=== PATIENT | male | born 1935 | race Caucasian/White ===

== ENCOUNTER 2016-06-28 10:16 | Emergency (ER) | payer MEDICARE ==
--- NOTE | 2016-06-28 10:28 | Emergency Department Record ---
History of Present Illness - General Chief complaint: Swelling of legs Stated complaint: LEFT LEG SWOLLEN Time Seen by Provider: 06/28/16 10:27 Source: Patient Mode of Arrival: Ambulatory Limitations: No limitations - History of Present Illness Initial comments: The patient is here due to L leg swelling for about 2 weeks. He denies any pain or discomfort. The patient also denies any CP, SOB, or MANSOOR. There is a past hx of DVT and the patient is on Coumadin for it. He was having an issue with his Coumadin and had it lowered about a month ago and his INR became low. He also has a Ashanti filter in place. The patient denies any black or bloody stools or any weakness or lightheadedness. MD Complaint: Extremity swelling Onset/Timin -: Week(s) Location: Left, Lower Leg History of Same: Yes Consistency: Constant Improves with: Nothing Worsens with: Nothing Associated Symptoms: Denies other symptoms - Related Data Home Medications Medication Instructions Recorded Confirmed Last Taken Omeprazole 20 mg PO DAILY 06/28/16 06/28/16 Unknown Rivastigmine 1 each TD DAILY 06/28/16 06/28/16 Unknown Warfarin Sodium [Coumadin] 2.5 mg PO DAILY 06/28/16 06/28/16 Unknown Previous Rx's Medication Instructions Recorded Enoxaparin Sodium [Lovenox] 100 mg SQ DAILY #5 ml 06/28/16 Allergies Allergy/AdvReac Type Severity Reaction Status Date / Time Penicillins Allergy HIVES Verified 06/28/16 10:25 Travel Screening - Travel/Exposure Within Last 30 Days Have you traveled within the last 30 days?: No Review of Systems Constitutional: Denies: Chills, Fever Eyes: Denies: Eye discharge ENT: Denies: Congestion Respiratory: Denies: Cough, Dyspnea Past Medical History - SOCIAL HISTORY Smoking Status: Former smoker Alcohol Use: None Drug Use: None - RESPIRATORY Hx Respiratory Disorders: No - CARDIOVASCULAR Hx Cardio Disorders: Yes Hx Deep Vein Thrombosis: Yes - NEURO Hx Neuro Disorders: Yes Hx TIA: Yes - GI Hx GI Disorders: Yes Hx Reflux: Yes - Hx Genitourinary Disorders: No - ENDOCRINE Hx Endocrine Disorders: No - MUSCULOSKELETAL Hx Musculoskeletal Disorders: No - PSYCH Hx Psych Problems: No - HEMATOLOGY/ONCOLOGY Hx Hematology/Oncology Disorders: No Family Medical History Any Significant Family History?: No Physical Exam - General General Appearance: Alert, Cooperative, No acute distress - Head Head exam: Atraumatic, Normocephalic, Normal inspection - Eye Eye exam: Normal appearance, PERRL - Neck Neck exam: Normal inspection, Full ROM. negative: Tenderness - Respiratory Respiratory exam: Normal lung sounds bilaterally. negative: Respiratory distress - Cardiovascular Cardiovascular Exam: Regular rate, Normal rhythm, Systolic murmur (2/6 RADHA LLSB. ) - GI/Abdominal GI/Abdominal exam: Soft, Normal bowel sounds. negative: Tenderness - Rectal Rectal exam: Heme (-) stool - Extremities Extremities exam: Normal capillary refill, Pedal edema (2+ to the L lower leg to the knee.). negative: Normal inspection, Calf tenderness, Joint swelling, Tenderness - Neurological Neurological exam: Alert. negative: Motor sensory deficit Course Vital Signs 06/28/16 10:19 Temperature 97.8 F Pulse Rate 90 Respiratory 20 Rate Blood Pressure 120/64 Pulse Ox 96 - Reevaluation(s) Reevaluation #1: The patient is resting comfortably. He denies any CP, SOB, or MANSOOR. 06/28/16 12:38 Reevaluation #2: The patient is doing very well at this time. He denies any pain or discomfort and is very stable at this time. I did discuss the US results with him and his daughter. I then did discuss the case with Dr. Perry and he believes since the patient has a filter in place and is already on Coumadin and is almost therapeutic he can go home on Lovenox. He would like the INR to be rechecked on Saturday and will see him in the office next week and will recheck the anemia also at that time. 06/28/16 13:56 Medical Decision Making - Data Complexity MDM Data: Labs Ordered and/or Reviewed, X-Ray Ordered and/or Reviewed - Lab Data Result diagrams: 06/28/16 10:49 06/28/16 10:49 - Radiology Data Radiology results: Report reviewed (Bilateral thigh clots on Doppler.) Disposition Disposition: Discharge Clinical Impression: DVT (deep venous thrombosis) Qualifiers: DVT location: lower extremity Affected thrombotic vein of extremity: unspecified vein of extremity Laterality: bilateral Chronicity: unspecified Qualified Code(s): I82.403 - Acute embolism and thrombosis of unspecified deep veins of lower extremity, bilateral Disposition: Home, Self-Care Condition: (1) Good Instructions: Deep Venous Thrombosis (ED) Additional Instructions: Please increase your Coumadin to 2.5 mg daily 7 days a week. Take the Lovenox as directed. Please have your lab work rechecked on Saturday. Please see your PCP next week as planned. Dr. Perry Prescriptions: Enoxaparin Sodium [Lovenox] 100 mg SQ DAILY #5 ml Forms: Patient Portal Access Time of Disposition: 14:02
[2016-06-28 11:08] LABS: ANION GAP 10.1 (7-16); BLOOD UREA NITROGEN 22 mg/dL (9-20); CARBON DIOXIDE 21.9 mmol/L (22-30); CREATININE 1.1 mg/dL (0.66-1.25); EST GLOMERULAR FILTRATION RATE > 60 ml/min; GLUCOSE,RANDOM 122 mg/dL (70-110)
[2016-06-28 11:10] LABS: INR 1.7; PARTIAL THROMBOPLASTIN TIME 34.7 SECONDS (24.5-39.1); PROTHROMBIN TIME (PATIENT) 19.2 SECONDS (9.5-12.1)
[2016-06-28 11:33] LABS: HEMATOCRIT 32.8 % (42.0-52.0); HEMOGLOBIN 10.5 gm/dl (14.0-18.0); MEAN CELL VOLUME 91.1 fl (81-97); PLATELET COUNT 346 K/uL (130-400); RED CELL DISTRIBUTION WIDTH 14.9 % (11.5-14.5); WHITE BLOOD COUNT W/O DIFF 7.6 K/uL (4.2-12.2)
[2016-06-28 11:37] LABS: MEAN CORPUSCULAR HEMOGLOBIN 29.1 pg (27-33)
[2016-06-28 11:42] LABS: PLATELET ESTIMATE NORMAL (NORMAL)
--- NOTE | 2016-07-03 10:45 | US VENOUS DOPPLER REPORT ---
EXAM: BILATERAL LOWER EXTREMITY VENOUS DOPPLER ULTRASOUND HISTORY: LEFT LOWER LEG SWELLING FOR A WEEK, HISTORY OF DVT YEARS AGO. TECHNIQUE: Venous Doppler ultrasound of the lower extremities was performed bilaterally. Color flow and spectral analysis was utilized, and flow augmentation and compression maneuvers were also utilized. Comparison: No prior venous Doppler ultrasound with which to compare. FINDINGS: On the left side, note is made of apparent thrombus to a considerable degree in the proximal left superficial femoral vein with some extension into the common femoral vein. This demonstrated a lack of compressibility and also lack of flow in the area of thrombus. The left greater saphenous vein and deep femoral vein did appear patent as visualized, however, the majority of the left superficial femoral vein does appear occluded with thrombus with probably a very small amount of flow in portions of the left mid superficial femoral vein. No images of the more distal aspect of the left lower extremity are provided. On the right, some thrombus is also seen in the common femoral vein and also in the mid to proximal aspect of the right superficial femoral vein with a lack of flow in this region. Some flow is seen in the more distal aspect of the right superficial femoral vein. No images of the more distal aspect of the right lower extremity were obtained. IMPRESSION: EVIDENCE OF DVT IN BOTH SUPERFICIAL FEMORAL VEINS EXTENDING INTO BOTH COMMON FEMORAL VEINS. JOB NUMBER: [id number] [facility]
== END 2016-06-28 14:11 | disposition home or self-care (01) ==
LOC: ER 10:16
DX: I82.412 Acute embolism and thrombosis of left femoral vein (principal); Z86.718 Personal history of other venous thrombosis and embolism; Z79.01 Long term (current) use of anticoagulants; Z87.891 Personal history of nicotine dependence
CPT/HCPCS: 80048; 85027; 85610; 85730; 93970; 99283; 99284

== ENCOUNTER 2016-07-27 10:15 | Emergency (ER) | payer MEDICARE ==
--- NOTE | 2016-07-27 10:40 | Emergency Department Record ---
History of Present Illness - General Chief complaint: Extremity Problem Stated complaint: POSSIBLE BLOOD CLOT Time Seen by Provider: 07/27/16 10:39 Source: Patient Mode of Arrival: Ambulatory Limitations: No limitations - History of Present Illness Initial comments: The patient is here with his daughter due to the L leg being more swollen than normal. He has a long hx of DVT's and is on Coumadin and does have a sowmya filter in place. He denies any CP, SOB, or MANSOOR. He was just here about a month ago and diagnosed with DVT's in both thighs. MD Complaint: Extremity swelling Onset/Timin -: Days(s) Location: Left, Lower Leg History of Same: Yes Severity scale (1-10): 1 Quality: Aching - Related Data Home Medications Medication Instructions Recorded Confirmed Last Taken Omeprazole 20 mg PO DAILY 06/28/16 07/27/16 1 Day Ago Rivastigmine 4.6 each TD DAILY 06/28/16 07/27/16 1 Day Ago Warfarin Sodium [Coumadin] 5 mg PO DAILY 06/28/16 07/27/16 1 Day Ago Ascorbic Acid [Vitamin C] 500 mg PO BID 07/27/16 07/27/16 1 Day Ago Ferrous Sulfate 325 mg PO BID 07/27/16 07/27/16 1 Day Ago Allergies Allergy/AdvReac Type Severity Reaction Status Date / Time Penicillins Allergy HIVES Verified 07/27/16 10:32 Travel Screening - Travel/Exposure Within Last 30 Days Have you traveled within the last 30 days?: No - Travel/Exposure Within Last Year Have you traveled outside the [place] in the last year?: No - Additonal Travel Details Have you been exposed to anyone with a communicable illness?: No - Travel Symptoms Symptom Screening: None Review of Systems Constitutional: Denies: Chills, Fever Eyes: Denies: Eye discharge ENT: Denies: Congestion Respiratory: Denies: Cough, Dyspnea Cardiovascular: Denies: Arrhythmia, Chest pain Past Medical History - SOCIAL HISTORY Smoking Status: Former smoker Alcohol Use: None Drug Use: None - RESPIRATORY Hx Pulmonary Embolism: Yes - CARDIOVASCULAR Hx Cardio Disorders: Yes Hx Deep Vein Thrombosis: Yes - NEURO Hx Neuro Disorders: Yes Hx TIA: Yes - GI Hx GI Disorders: Yes Hx Reflux: Yes - Hx Genitourinary Disorders: No - ENDOCRINE Hx Endocrine Disorders: No - MUSCULOSKELETAL Hx Musculoskeletal Disorders: No - PSYCH Hx Psych Problems: No - HEMATOLOGY/ONCOLOGY Hx Hematology/Oncology Disorders: No Family Medical History Any Significant Family History?: Yes Physical Exam - General General Appearance: Alert, Cooperative, No acute distress - Head Head exam: Atraumatic, Normocephalic, Normal inspection - Eye Eye exam: Normal appearance, PERRL - Neck Neck exam: Normal inspection, Full ROM. negative: Tenderness - Respiratory Respiratory exam: Normal lung sounds bilaterally. negative: Respiratory distress - Cardiovascular Cardiovascular Exam: Regular rate, Normal rhythm, Systolic murmur (2/6 RADHA LLSB. ) - GI/Abdominal GI/Abdominal exam: Soft, Normal bowel sounds. negative: Tenderness - Extremities Extremities exam: Pedal edema (L leg 2+ compared to 1+ on the R.), Tenderness. negative: Normal inspection (The L leg is more swollen than normal.) - Back Back exam: Reports: Normal inspection - Neurological Neurological exam: Alert Course Vital Signs 07/27/16 10:22 Temperature 97.8 F Pulse Rate 81 Respiratory 20 Rate Blood Pressure 111/57 Pulse Ox 97 - Reevaluation(s) Reevaluation #1: The patient is resting comfortably and denies any problems or pain. He is still waiting on his US. 07/27/16 12:00 Reevaluation #2: The patient is doing well at this time. I did discuss the test results with the patient and daughter. I also did discuss the US and lab results with Dr. Perry. Due to the US appearing improved from last month we will have the patient start using KANCHAN hose and will monitor his INR level closely. 07/27/16 15:44 Medical Decision Making - Data Complexity MDM Data: Labs Ordered and/or Reviewed, X-Ray Ordered and/or Reviewed - Lab Data Result diagrams: 07/27/16 11:05 07/27/16 11:05 - Radiology Data Radiology results: Report reviewed (US: Doppler L leg: DVT's to the bilateral legs, improved from last month.) Disposition Disposition: Discharge Clinical Impression: DVT (deep venous thrombosis) Qualifiers: DVT location: lower extremity Affected thrombotic vein of extremity: unspecified vein of extremity Laterality: bilateral Chronicity: unspecified Qualified Code(s): I82.403 - Acute embolism and thrombosis of unspecified deep veins of lower extremity, bilateral Disposition: Home, Self-Care Condition: (2) Stable Instructions: Deep Venous Thrombosis (ED), Leg Edema (ED) Additional Instructions: Please do not take your next dose of Coumadin and start back on your normal dosing tomorrow. Please have your INR rechecked on Saturday. Use the Kanchan hose as directed. Return to the ER for any problems. Forms: Patient Portal Access Time of Disposition: 15:40
[2016-07-27 11:12] LABS: BASO % 0.3 % (0-6); EOS % 2.9 % (0-6); GRAN % 72.9 % (47-80); HEMATOCRIT 33.7 % (42.0-52.0); HEMOGLOBIN 10.3 gm/dl (14.0-18.0); LYMPH % 13.7 % (16-45); MEAN CELL VOLUME 91.3 fl (81-97); MEAN CORPUSCULAR HEMOGLOBIN 27.9 pg (27-33); MEAN CORPUSCULAR HGB CONC 30.6 g/dl (32-36); MEAN PLATELET VOLUME 9.4 fl (7.4-10.4); MONO % 10.2 % (0-9); PLATELET COUNT 329 K/uL (130-400); RED BLOOD COUNT 3.69 M/uL (4.40-5.70); RED CELL DISTRIBUTION WIDTH 15.2 % (11.5-14.5); WHITE BLOOD COUNT W/O DIFF 8.8 K/uL (4.2-12.2)
[2016-07-27 11:33] LABS: INR 4.19; PARTIAL THROMBOPLASTIN TIME 49.3 SECONDS (24.5-39.1); PROTHROMBIN TIME (PATIENT) 47.3 SECONDS (9.5-12.1)
[2016-07-27 11:37] LABS: BLOOD UREA NITROGEN 24 mg/dL (9-20); EST GLOMERULAR FILTRATION RATE > 60 ml/min; GLUCOSE,RANDOM 109 mg/dL (70-110)
--- NOTE | 2016-07-31 13:25 | US VENOUS DOPPLER REPORT ---
EXAM: DUPLEX VENOUS DOPPLER ULTRASOUND OF THE LEFT LOWER EXTREMITY HISTORY: LEFT LOWER EXTREMITY SWELLING. TECHNIQUE: Duplex ultrasound venography of the left lower extremity was obtained. Comparison: 06/28/16. FINDINGS: On the left side the common femoral vein is poorly compressible. There is flow identified in the common femoral vein. The superficial femoral vein incompletely compresses. There is flow identified within the superficial femoral vein. There is peripheral thrombus present. Overall the thrombus appears slightly less than on the patient's previous examination. A thrombus is seen throughout the course of the superficial femoral vein. The popliteal vein also appears poorly compressible presumably due to some thrombus . The calf veins are poorly seen, but are grossly unremarkable. On the right side limited imaging is performed. There is incomplete compressibility of the common femoral vein suggesting the presence of some thrombus. This finding appears similar to the previous study. IMPRESSION: EVIDENCE OF DEEP VENOUS THROMBOSIS BILATERALLY, LEFT GREATER THAN RIGHT. FINDINGS VISUALLY APPEAR SLIGHTLY IMPROVED FROM THE PREVIOUS STUDY. IT IS UNCERTAIN HOW MUCH OF THIS IS CHRONIC VERSUS ACUTE THROMBUS. JOB NUMBER: [id number] [facility]
== END 2016-07-27 15:44 | disposition home or self-care (01) ==
LOC: ER 10:15
DX: I82.403 Acute embolism and thrombosis of unspecified deep veins of lower extremity, bilateral (principal); Z79.01 Long term (current) use of anticoagulants
CPT/HCPCS: 80048; 85025; 85610; 85730; 99283; 99284

== ENCOUNTER 2016-10-05 07:09 | Emergency (ER) | payer MEDICARE ==
--- NOTE | 2016-10-05 07:22 | Emergency Department Record ---
History of Present Illness - General Chief Complaint: Fall Injury Stated Complaint: FALL Source: Patient Mode of Arrival: Ambulatory Limitations: No limitations - History of Present Illness Initial Comments: 80 yo male presents to ED with a CC of fall and left hip pain. Patient denies injury to the head, and reports that he was able to get back up on his own and walk to the front desk supervisor to ask for help. Patient denies neck pain or injury, Patient denies numbness, tingling, or weakness to the extremities. 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 Fall Witnessed: No Place Fall Occurred: Home Loss of Consciousness: None Prolonged Down Time?: No Symptoms Prior to Fall: None Location - Extremities: Left: Lower Leg Severity: Moderate Quality: Aching Associated Symptoms: Denies - Yaw Coma Scale Eye Response: (4) Open spontaneously Motor Response: (6) Obeys commands Verbal Response: (5) Oriented Yaw Total: 15 - Related Data Home Medications Medication Instructions Recorded Confirmed Last Taken Omeprazole 20 mg PO DAILY 06/28/16 10/05/16 10/04/16 Rivastigmine 4.6 each TD DAILY 06/28/16 10/05/16 10/04/16 Warfarin Sodium [Coumadin] 2.5 mg PO DAILY 06/28/16 10/05/16 10/04/16 Ascorbic Acid [Vitamin C] 500 mg PO BID 07/27/16 10/05/16 10/04/16 Ferrous Sulfate 325 mg PO BID 07/27/16 10/05/16 10/04/16 Acetaminophen [Tylenol 325Mg] 325 mg PO Q6H PRN 10/05/16 10/05/16 10/05/16 Furosemide [Lasix] 20 mg PO DAILY 10/05/16 10/05/16 10/04/16 Polyethylene Glycol 3350 [Miralax] 119 gm PO DAILY 10/05/16 10/05/16 10/04/16 Potassium Chloride [Klor-Con] 10 meq PO DAILY 10/05/16 10/05/16 10/04/16 Quetiapine Fumarate [Seroquel] 25 mg PO QHS 10/05/16 10/05/16 10/04/16 Allergies Allergy/AdvReac Type Severity Reaction Status Date / Time Penicillins Allergy HIVES Verified 10/05/16 07:16 Review of Systems Constitutional: Denies: Chills, Fever, Malaise, Night sweats Eyes: Denies: Eye discharge, Eye pain ENT: Denies: Congestion, Ear pain, Epistaxis Respiratory: Denies: Cough, Dyspnea Cardiovascular: Denies: Chest pain, Dyspnea on exertion Endocrine: Denies: Fatigue, Heat or cold intolerance Gastrointestinal: Denies: Abdominal pain, Nausea, Vomiting Genitourinary: Denies: Incontinence, Retention Musculoskeletal: Denies: Arthralgia, Back pain, Gout, Joint swelling Skin: Denies: Bruising, Change in color Neurological: Denies: Abnormal gait, Confusion, Headache, Seizure Psychiatric: Denies: Anxiety Hematological/Lymphatic: Denies: Anemia, Blood Clots Past Medical History - SOCIAL HISTORY Smoking Status: Former smoker Drug Use: None - RESPIRATORY Hx Pulmonary Embolism: Yes - CARDIOVASCULAR Hx Cardio Disorders: Yes Hx Deep Vein Thrombosis: Yes - NEURO Hx Neuro Disorders: Yes Hx TIA: Yes - GI Hx GI Disorders: Yes Hx Reflux: Yes - Hx Genitourinary Disorders: No - ENDOCRINE Hx Endocrine Disorders: No - MUSCULOSKELETAL Hx Musculoskeletal Disorders: No - PSYCH Hx Psych Problems: No - HEMATOLOGY/ONCOLOGY Hx Hematology/Oncology Disorders: No Physical Exam - General General Appearance: Alert, Oriented x3, Cooperative, No acute distress Limitations: No limitations - Head Head exam: Atraumatic, Normocephalic, Normal inspection Head exam detail: negative: Abrasion, Contusion, Barnett's sign, General tenderness, Hematoma, Laceration - Eye Eye exam: Normal appearance. negative: Conjunctival injection, Periorbital swelling, Periorbital tenderness, Scleral icterus - ENT Ear exam: negative: Auricular hematoma, Auricular trauma Nasal Exam: negative: Active bleeding, Discharge, Dried blood, Foreign body Mouth exam: negative: Drooling, Laceration, Muffled voice, Tongue elevation - Neck Neck exam: Normal inspection. negative: Meningismus, Tenderness - Respiratory Respiratory exam: Normal lung sounds bilaterally. negative: Rales, Respiratory distress, Rhonchi, Stridor - Cardiovascular Cardiovascular Exam: Regular rate, Normal rhythm, Normal heart sounds - GI/Abdominal GI/Abdominal exam: Soft. negative: Rebound, Rigid, Tenderness - Rectal Rectal exam: Deferred - exam: Deferred - Extremities Extremities exam: Pedal edema (2+ edema bilaterally), Tenderness (TTP left hip proximally). negative: Calf tenderness - Back Back exam: Denies: CVA tenderness (R), CVA tenderness (L) - Neurological Neurological exam: Alert, Oriented X3. negative: Motor sensory deficit - Psychiatric Psychiatric exam: Normal affect, Normal mood - Skin Skin exam: Normal color. negative: Abrasion Type of lesion: negative: abrasion Course Vital Signs 10/05/16 07:11 Temperature 97.8 F Pulse Rate [ 82 Pulse Ox Probe] Respiratory 16 Rate Blood Pressure 141/84 [Left Arm] Pulse Ox 97 - Reevaluation(s) Reevaluation #1: 10/05/16 08:06 Labs reviewed, Hgb at baseline (10.9), INR 1.30, labs are otherwise grossly unremarkable for an acute process. Reevaluation #2: 10/05/16 08:49 Patient is back from radiology, initially refused analgesia, however was willing to take 1/2 [place] tablet, now sleeping comfortably. Awaiting radiologist interpretation. Reevaluation #3: 10/05/16 08:56 CT Brain: Atrophy, nothing acute. Left Hip: No acute fracture. Reevaluation #4: 10/05/16 09:08 Patient up with walker, able to weight bear well without difficulty. Patient and family were updated on all results, and the patient appears stable for discharge at this time. Medical Decision Making - Lab Data Result diagrams: 10/05/16 07:33 10/05/16 07:33 Disposition Disposition: Discharge Clinical Impression: Contusion of hip Qualifiers: Encounter type: initial encounter Laterality: left Qualified Code(s): S70.02XA - Contusion of left hip, initial encounter Disposition: Home, Self-Care Condition: (2) Stable Instructions: Fall Prevention for Older Adults (ED) Additional Instructions: Return to ED if your symptoms worsen or if you have any concerns. Follow-up with your family doctor in 1-3 days as directed. Forms: Patient Portal Access Time of Disposition: 09:10
[2016-10-05 07:41] LABS: BASO % 0.6 % (0-6); GRAN % 69.2 % (47-80); HEMATOCRIT 36.3 % (42.0-52.0); HEMOGLOBIN 10.9 gm/dl (14.0-18.0); LYMPH % 15.7 % (16-45); MEAN CELL VOLUME 91.4 fl (81-97); MEAN PLATELET VOLUME 9.5 fl (7.4-10.4); MONO % 11.5 % (0-9); PLATELET COUNT 281 K/uL (130-400); RED BLOOD COUNT 3.97 M/uL (4.40-5.70); RED CELL DISTRIBUTION WIDTH 17.3 % (11.5-14.5); WHITE BLOOD COUNT W/O DIFF 8.9 K/uL (4.2-12.2)
[2016-10-05 07:42] LABS: MEAN CORPUSCULAR HEMOGLOBIN 27.4 pg (27-33)
[2016-10-05 07:53] LABS: INR 1.3; PROTHROMBIN TIME (PATIENT) 14.7 SECONDS (9.5-12.1)
[2016-10-05 08:00] LABS: ALB/GLOB RATIO 1.1 (1.1-1.8); ALBUMIN 3.8 gm/dL (3.5-5.0); ALKALINE PHOSPHATASE 103 U/L (38-126); ALT/SGPT 37 U/L (21-72); ANION GAP 7.5 (7-16); AST/SGOT 32 U/L (17-59); BILIRUBIN,TOTAL 0.36 mg/dL (0.2-1.3); BLOOD UREA NITROGEN 24 mg/dL (9-20); CARBON DIOXIDE 26.5 mmol/L (22-30); EST GLOMERULAR FILTRATION RATE > 60 ml/min; GLUCOSE,RANDOM 99 mg/dL (70-110); TOTAL PROTEIN 7.3 gm/dL (6.3-8.2)
[2016-10-05] MEDS ORDERED: HYDROCODONE/APAP 7.5/325MG TABLET PO ONE (08:05)
== END 2016-10-05 09:32 | disposition home or self-care (01) ==
LOC: ER 07:09
DX: S70.02XA Contusion of left hip, initial encounter (principal); W01.0XXA Fall on same level from slipping, tripping and stumbling without subsequent striking against object, initial encounter; Y92.129 Unspecified place in nursing home as the place of occurrence of the external cause; Z86.73 Personal history of transient ischemic attack (TIA), and cerebral infarction without residual deficits; Z79.01 Long term (current) use of anticoagulants
CPT/HCPCS: 70450; 80053; 85025; 85610; 99283; 99284

== ENCOUNTER 2016-10-28 14:36 | Emergency (ER) | payer MEDICARE ==
[2016-10-28] MEDS ORDERED: HYDROCODONE/APAP 5/325MG TABLET PO ONE ×2 (17:24→17:27)
--- NOTE | 2016-10-28 17:30 | Emergency Department Record ---
History of Present Illness - General Chief complaint: Pain Stated complaint: HIP PAIN Time Seen by Provider: 10/28/16 15:42 Source: Patient, Family Mode of Arrival: Wheelchair Limitations: No limitations - History of Present Illness Initial comments: pt fell onto his l hip today and it hurts to walk on it. pt has fallen 3 times in the last month MD Complaint: Extremity pain Onset/Timin -: Days(s) Location: Left, Other Severity scale (1-10): 6 Quality: Aching Consistency: Constant Improves with: Nothing Worsens with: Walking, Weight bearing Associated Symptoms: Denies other symptoms - Related Data Home Medications Medication Instructions Recorded Confirmed Last Taken Omeprazole 20 mg PO DAILY 06/28/16 10/28/16 10/04/16 Rivastigmine 4.6 each TD DAILY 06/28/16 10/28/16 10/04/16 Warfarin Sodium [Coumadin] 2.5 mg PO DAILY 06/28/16 10/28/16 10/04/16 Ascorbic Acid [Vitamin C] 500 mg PO BID 07/27/16 10/28/16 10/04/16 Ferrous Sulfate 325 mg PO BID 07/27/16 10/28/16 10/04/16 Acetaminophen [Tylenol 325Mg] 325 mg PO Q6H PRN 10/05/16 10/28/16 10/05/16 Furosemide [Lasix] 20 mg PO DAILY 10/05/16 10/28/16 10/04/16 Polyethylene Glycol 3350 [Miralax] 119 gm PO DAILY 10/05/16 10/28/16 10/04/16 Potassium Chloride [Klor-Con] 10 meq PO DAILY 10/05/16 10/28/16 10/04/16 Quetiapine Fumarate [Seroquel] 25 mg PO QHS 10/05/16 10/28/16 10/04/16 Hydrocodone/Acetaminophen [[place] 1 tab PO Q8H PRN 10/28/16 10/28/16 Unknown 5mg/325mg] Previous Rx's Medication Instructions Recorded Hydrocodone/Acetaminophen [[place] 0.5 tab PO Q6H PRN #10 tab 10/28/16 5mg/325mg] Allergies Allergy/AdvReac Type Severity Reaction Status Date / Time Penicillins Allergy HIVES Verified 10/05/16 07:16 Travel Screening - Travel/Exposure Within Last 30 Days Have you traveled within the last 30 days?: No Review of Systems Reviewed: No additional complaints except as noted below Constitutional: Reports: As per HPI. Denies: Chills, Fever, Malaise, Night sweats, Weakness, Weight change Eyes: Reports: As per HPI. Denies: Eye discharge, Eye pain, Photophobia, Vision change ENT: Reports: As per HPI. Denies: Congestion, Dental pain, Ear pain, Epistaxis , Hearing loss, Throat pain Respiratory: Reports: As per HPI. Denies: Cough, Dyspnea, Hemoptysis, Stridor, Wheezes Cardiovascular: Reports: As per HPI. Denies: Arrhythmia, Chest pain, Dyspnea on exertion, Edema, Murmurs, Orthopnea, Palpitations, Paroxysmal nocturnal dyspnea, Rheumatic Fever, Syncope Endocrine: Reports: As per HPI. Denies: Fatigue, Heat or cold intolerance, Polydipsia, Polyuria Gastrointestinal: Reports: As per HPI. Denies: Abdominal pain, Constipation, Diarrhea, Hematemesis, Hematochezia, Melena, Nausea, Vomiting Genitourinary: Reports: As per HPI. Denies: Dysuria, Frequency, Hematuria, Incontinence, Retention, Testicular pain, Testicular mass, Urgency Musculoskeletal: Reports: As per HPI. Denies: Arthralgia, Back pain, Gout, Joint swelling, Myalgia, Neck pain Skin: Reports: As per HPI. Denies: Bruising, Change in color, Change in hair/ nails, Lesions, Pruritus, Rash Neurological: Reports: As per HPI. Denies: Abnormal gait, Confusion, Headache, Numbness, Paresthesias, Seizure, Tingling, Tremors, Vertigo, Weakness Psychiatric: Reports: As per HPI. Denies: Anxiety, Auditory hallucinations, Depression, Homicidal thoughts, Suicidal thoughts, Visual hallucinations Hematological/Lymphatic: Reports: As per HPI. Denies: Anemia, Blood Clots, Easy bleeding, Easy bruising, Swollen glands Past Medical History - SOCIAL HISTORY Smoking Status: Former smoker - RESPIRATORY Hx Respiratory Disorders: Yes Hx Pulmonary Embolism: Yes - CARDIOVASCULAR Hx Cardio Disorders: Yes Hx Deep Vein Thrombosis: Yes - NEURO Hx Neuro Disorders: Yes Hx TIA: Yes - GI Hx GI Disorders: Yes Hx Reflux: Yes - Hx Genitourinary Disorders: No - ENDOCRINE Hx Endocrine Disorders: No - MUSCULOSKELETAL Hx Musculoskeletal Disorders: No - PSYCH Hx Psych Problems: No - HEMATOLOGY/ONCOLOGY Hx Hematology/Oncology Disorders: No Family Medical History Any Significant Family History?: No Physical Exam - General General Appearance: Alert, Oriented x3, Cooperative, Mild distress - Head Head exam: Normal inspection - Eye Eye exam: Normal appearance, PERRL, EOMI Pupils: Normal accommodation - ENT ENT exam: Normal exam, Mucous membranes moist, Normal external ear exam, Normal orophraynx Ear exam: Normal external inspection. negative: External canal tenderness Nasal Exam: Normal inspection. negative: Discharge, Sinus tenderness Mouth exam: Normal external inspection, Tongue normal Teeth exam: Normal inspection. negative: Dental caries Throat exam: Normal inspection. negative: Tonsillar erythema, Tonsillar exudate - Neck Neck exam: Normal inspection, Full ROM. negative: Tenderness - Respiratory Respiratory exam: Normal lung sounds bilaterally. negative: Respiratory distress - Cardiovascular Cardiovascular Exam: Regular rate, Normal rhythm, Systolic murmur - GI/Abdominal GI/Abdominal exam: Soft, Normal bowel sounds. negative: Tenderness - Rectal Rectal exam: Deferred - exam: Deferred - Extremities Extremities exam: Normal inspection, Normal capillary refill, Tenderness. negative: Full ROM Image of Full Body: 1 - tender - Back Back exam: Reports: Normal inspection, Full ROM. Denies: Muscle spasm, Rash noted, Tenderness - Neurological Neurological exam: Alert, Normal gait, Oriented X3, Reflexes normal - Psychiatric Psychiatric exam: Normal affect, Normal mood - Skin Skin exam: Dry, Intact, Normal color, Warm Course Vital Signs 10/28/16 15:20 Temperature 98.1 F Pulse Rate 79 Respiratory 18 Rate Blood Pressure 119/69 Pulse Ox 94 L Disposition Disposition: Discharge Clinical Impression: Hip pain Qualifiers: Laterality: left Qualified Code(s): M25.552 - Pain in left hip Disposition: Home, Self-Care Condition: (1) Good Instructions: Pain Management in the Elderly (ED), Osteoarthritis (ED), Hip Sprain (ED) Additional Instructions: follow up with family doctor. rest. return sooner if worse Prescriptions: Hydrocodone/Acetaminophen [[place] 5mg/325mg] 0.5 tab PO Q6H PRN #10 tab PRN Reason: Pain - General Forms: Patient Portal Access
== END 2016-10-28 17:30 | disposition home or self-care (01) ==
LOC: ER 14:36
DX: G89.11 Acute pain due to trauma (principal); M25.552 Pain in left hip; W19.XXXA Unspecified fall, initial encounter; Z91.81 History of falling
CPT/HCPCS: 99283

== ENCOUNTER 2017-01-27 21:26 | Emergency (ER) | payer MEDICARE ==
--- NOTE | 2017-01-27 21:40 | Emergency Department Record ---
History of Present Illness - General Chief Complaint: Fall Injury Stated Complaint: FALL Time Seen by Provider: 01/27/17 21:34 Source: Patient, EMS Mode of Arrival: EMS Limitations: No limitations - History of Present Illness Initial Comments: 81 yo male presents to ED following a fall at [facility] just prior to arrival. Patient reports that he tripped over his walker resulting in injury. Patient reports pain to the right mid-thigh (described as "jorge alberto horse") as well as the posterior right shoulder. Patient denies injury to the head or neck on examination. MD Complaint: Fall Onset/Timin -: Minutes(s) Fall From: Standing When Fall Occurred: Just prior to arrival Fall Witnessed: Yes, by living facility staff Place Fall Occurred: Home Loss of Consciousness: None Prolonged Down Time?: No Symptoms Prior to Fall: None Location - Extremities: Right: Shoulder, Thigh Severity: Moderate Quality: Aching - [place] Coma Scale Eye Response: (4) Open spontaneously Motor Response: (6) Obeys commands Verbal Response: (5) Oriented [place] Total: 15 - Related Data Home Medications Medication Instructions Recorded Confirmed Last Taken Omeprazole 20 mg PO DAILY 06/28/16 01/27/17 01/27/17 Rivastigmine 4.6 each TD DAILY 06/28/16 01/27/17 10/04/16 Warfarin Sodium [Coumadin] 2.5 mg PO DAILY 06/28/16 01/27/17 10/04/16 Ascorbic Acid [Vitamin C] 500 mg PO BID 07/27/16 01/27/17 10/04/16 Ferrous Sulfate 325 mg PO BID 07/27/16 01/27/17 01/27/17 Acetaminophen [Tylenol 325Mg] 325 mg PO Q6H PRN 10/05/16 01/27/17 10/05/16 Furosemide [Lasix] 40 mg PO DAILY 10/05/16 01/27/17 01/27/17 Polyethylene Glycol 3350 [Miralax] 119 gm PO DAILY 10/05/16 01/27/17 01/27/17 Potassium Chloride [Klor-Con] 10 meq PO DAILY 10/05/16 01/27/17 01/27/17 Quetiapine Fumarate [Seroquel] 50 mg PO QHS 10/05/16 01/27/17 10/04/16 Hydrocodone/Acetaminophen [[place] 1 tab PO Q8H PRN 10/28/16 01/27/17 Unknown 5mg/325mg] Mupirocin [Bactroban] 1 apply TP BID 01/27/17 01/27/17 01/27/17 Previous Rx's Medication Instructions Recorded Hydrocodone/Acetaminophen [[place] 0.5 tab PO Q6H PRN #10 tab 10/28/16 5mg/325mg] Allergies Allergy/AdvReac Type Severity Reaction Status Date / Time Penicillins Allergy HIVES Verified 01/27/17 21:37 Review of Systems Constitutional: Denies: Chills, Fever, Malaise, Night sweats Eyes: Denies: Eye discharge, Eye pain ENT: Denies: Congestion, Ear pain, Epistaxis Respiratory: Denies: Cough, Dyspnea Cardiovascular: Denies: Chest pain, Dyspnea on exertion Endocrine: Denies: Fatigue, Heat or cold intolerance Gastrointestinal: Denies: Abdominal pain, Nausea, Vomiting Genitourinary: Denies: Incontinence, Retention Musculoskeletal: Reports: Arthralgia. Denies: Back pain, Gout, Joint swelling Skin: Denies: Bruising, Change in color Neurological: Denies: Abnormal gait, Confusion, Headache, Seizure Psychiatric: Denies: Anxiety Hematological/Lymphatic: Reports: Blood Clots, Easy bleeding, Easy bruising. Denies: Anemia Past Medical History - SOCIAL HISTORY Smoking Status: Former smoker - RESPIRATORY Hx Respiratory Disorders: Yes Hx Pulmonary Embolism: Yes - CARDIOVASCULAR Hx Cardio Disorders: Yes Hx Deep Vein Thrombosis: Yes - NEURO Hx Neuro Disorders: Yes Hx TIA: Yes - GI Hx GI Disorders: Yes Hx Reflux: Yes - Hx Genitourinary Disorders: No - ENDOCRINE Hx Endocrine Disorders: No - MUSCULOSKELETAL Hx Musculoskeletal Disorders: No - PSYCH Hx Psych Problems: No - HEMATOLOGY/ONCOLOGY Hx Hematology/Oncology Disorders: No Physical Exam - General General Appearance: Alert, Cooperative, Other (patient is at baseline mental status per EMS) - Head Head exam: Atraumatic, Normocephalic, Normal inspection Head exam detail: negative: Abrasion, Contusion, Barnett's sign, General tenderness, Hematoma, Laceration - Eye Eye exam: Normal appearance. negative: Conjunctival injection, Periorbital swelling, Periorbital tenderness, Scleral icterus - ENT Ear exam: negative: Auricular hematoma, Auricular trauma Nasal Exam: negative: Active bleeding, Discharge, Dried blood, Foreign body Mouth exam: negative: Drooling, Laceration, Tongue elevation - Neck Neck exam: Other (cervical collar is in place) - Respiratory Respiratory exam: negative: Respiratory distress, Rhonchi, Stridor - Cardiovascular Cardiovascular Exam: Regular rate, Normal rhythm, Normal heart sounds - GI/Abdominal GI/Abdominal exam: Soft. negative: Rebound, Rigid, Tenderness - Rectal Rectal exam: Deferred - exam: Deferred - Extremities Extremities exam: Tenderness, Other (TTP over the mid-right thigh, pain with ROM of the right shoulder.). negative: Calf tenderness, Pedal edema - Back Back exam: Denies: CVA tenderness (R), CVA tenderness (L) - Neurological Neurological exam: Alert, Normal gait, Oriented X3 - Psychiatric Psychiatric exam: Normal affect, Normal mood - Skin Skin exam: Normal color. negative: Abrasion Type of lesion: negative: abrasion Course - Reevaluation(s) Reevaluation #1: 01/27/17 22:32 Labs reviewed, INR 1.89, labs are otherwise grossly unremarkable for an acute process. Reevaluation #2: 01/27/17 22:34 CT Brain: No acute traumatic injury, small vessel ischemic changes CT Cervical Spine: Multi-level DJD, no acute traumatic injury. Right Hip: No acute process Right Femur: No acute process Right shoulder: Degenerative changes, nothing acute Left ankle: No acute process, vascular calcifications present 01/27/17 23:22 Cervical Spine was cleared clinically, will attempt ambulation trial prior to discharge. Reevaluation #3: 01/27/17 23:30 Patient ambulated without difficulty and was able to bear weight well. Patient appears stable for discharge back to [facility] with family members at the bedside. Medical Decision Making - Lab Data Result diagrams: 01/27/17 22:00 01/27/17 22:00 Disposition Disposition: Discharge Clinical Impression: Multiple contusions Fall Qualifiers: Encounter type: initial encounter Qualified Code(s): W19.XXXA - Unspecified fall, initial encounter Disposition: Home, Self-Care Condition: (2) Stable Instructions: Fall Prevention for Older Adults (ED) Additional Instructions: Return to ED if your symptoms worsen or if you have any concerns. Follow-up with you family doctor in 3-5 days as directed. Forms: Patient Portal Access Time of Disposition: 23:32 Quality - Quality Measures Quality Measures: N/A - Blood Pressure Screening Blood Pressure Classification: Pre-Hypertensive BP Reading Systolic Measurement: 121 Diastolic Measurement: 79 Screening for High Blood Pressure: < Pre-Hypertensive BP, F/U Documented > [ [id number]] Pre-Hypertensive Follow-up Interventions: Referral to alternative/primary care provider.
[2017-01-27 22:03] LABS: BASO % 0.4 % (0-6); EOS % 2.1 % (0-6); HEMATOCRIT 38.7 % (42.0-52.0); HEMOGLOBIN 12.2 gm/dl (14.0-18.0); MEAN CELL VOLUME 93.3 fl (81-97); MEAN CORPUSCULAR HEMOGLOBIN 29.3 pg (27-33); MEAN CORPUSCULAR HGB CONC 31.5 g/dl (32-36); MEAN PLATELET VOLUME 9.5 fl (7.4-10.4); MONO % 9.5 % (0-9); PLATELET COUNT 262 K/uL (130-400); RED BLOOD COUNT 4.15 M/uL (4.40-5.70); WHITE BLOOD COUNT W/O DIFF 9.9 K/uL (4.2-12.2)
[2017-01-27 22:14] LABS: ALB/GLOB RATIO 1.3 (1.1-1.8); ALBUMIN 4.3 gm/dL (3.5-5.0); ALKALINE PHOSPHATASE 92 U/L (38-126); ALT/SGPT 42 U/L (21-72); ANION GAP 8.2 (7-16); AST/SGOT 33 U/L (17-59); BILIRUBIN,TOTAL 0.82 mg/dL (0.2-1.3); BLOOD UREA NITROGEN 32 mg/dL (9-20); CARBON DIOXIDE 27.8 mmol/L (22-30); CREATININE 1.1 mg/dL (0.66-1.25); EST GLOMERULAR FILTRATION RATE > 60 ml/min; GLUCOSE,RANDOM 112 mg/dL (70-110); INR 1.89; PROTHROMBIN TIME (PATIENT) 20.5 SECONDS (9.5-12.1); TOTAL PROTEIN 7.7 gm/dL (6.3-8.2)
--- NOTE | 2017-01-29 09:08 | CT SCAN REPORT ---
EXAM: CT SCAN OF THE BRAIN WITHOUT CONTRAST HISTORY: HEAD INJURY STATUS POST FALL. TECHNIQUE: Standard CT imaging of the brain was performed in the axial plane without contrast. Additional coronal and sagittal reformatted images were also performed. Comparison: 10/05/16. Encounter: Initial. Hand dominance: Right. FINDINGS: There is mild generalized atrophy. The ventricles and subarachnoid spaces are otherwise normal. Minor chronic small vessel ischemic changes are present within the periventricular and subcortical white matter at both cerebral hemispheres and are unchanged. There is no mass, mass effect, intracranial hemorrhage, visible acute infarct, or abnormal extraaxial fluid. The skull is intact. Small mucous retention cysts are present within the left maxillary sinus. The sinuses, orbits, and mastoids are otherwise normal. IMPRESSION: 1. NO ACUTE INTRACRANIAL ABNORMALITY OR SKULL FRACTURE. 2. MILD ATROPHY AND CHRONIC SMALL VESSEL ISCHEMIC CHANGES. JOB NUMBER: [id number] [facility]TDD
--- NOTE | 2017-01-29 09:22 | CT SCAN REPORT ---
EXAM: CT SCAN OF THE CERVICAL SPINE WITHOUT CONTRAST HISTORY: NECK INJURY STATUS POSS FALL. TECHNIQUE: Standard CT imaging of the cervical spine was performed in the axial plane without contrast. Additional coronal and sagittal reformatted images were also performed. Encounter: Initial. FINDINGS: There is normal cervical alignment. The craniocervical junction is unremarkable. There is very slight anterolisthesis of C5 on C6, C6 on C7, and C7 on T1, all of which appear degenerative in nature. Facet arthropathy is present throughout. There is severe disk space narrowing of the C6-C7 level. There is moderate disk space narrowing of the C3 through C6 and C7-T1 levels. End plate degenerative changes are present throughout. There is no acute fracture, subluxation, or prevertebral soft tissue swelling. Moderate neural foraminal narrowing is present at multiple levels. There is no central canal stenosis. The neck soft tissues are normal. The lung apices are clear. Mild emphysematous changes are present. IMPRESSION: 1. NO ACUTE CERVICAL SPINE PATHOLOGY. 2. 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 JOB NUMBER: [id number] [facility]
--- NOTE | 2017-01-29 09:25 | RADIOLOGY REPORT ---
EXAM: LEFT ANKLE, THREE VIEWS HISTORY: FALL, MEDIAL LEFT ANKLE INJURY AND PAIN. TECHNIQUE: Three views of the left ankle were obtained. Comparison: None. Encounter: Initial. FINDINGS: Osteopenia. Extensive diffuse soft tissue swelling. No acute fracture or dislocation. Mild arthritic change dorsal mid foot. Mild enthesopathy of the calcaneus. IMPRESSION: 1. NEGATIVE FOR ACUTE FRACTURE OF THE LEFT ANKLE. 2. OSTEOPENIA. 3. EXTENSIVE SOFT TISSUE SWELLING DIFFUSELY. JOB NUMBER: [id number] [facility]
--- NOTE | 2017-01-29 09:43 | RADIOLOGY REPORT ---
EXAM: RIGHT FEMUR, FOUR VIEWS HISTORY: FALL, RIGHT FEMUR INJURY AND PAIN. TECHNIQUE: Four views of the right femur were obtained. Comparison: Right hip radiograph same day. Encounter: Initial. FINDINGS: No bone or joint abnormality. IMPRESSION: NEGATIVE RIGHT FEMUR EXAMINATION. JOB NUMBER: [id number] [facility]TDD
--- NOTE | 2017-01-29 09:45 | RADIOLOGY REPORT ---
EXAM: RIGHT HIP, THREE VIEWS HISTORY: FALL, RIGHT HIP INJURY AND PAIN. TECHNIQUE: Three views of the right hip were obtained. Comparison: Right femur radiograph same day. Encounter: Initial. FINDINGS: The sacroiliac joints are unremarkable. The sacrum is intact. The femoroacetabular joint space is preserved. No fracture or dislocation. IMPRESSION: NEGATIVE RIGHT HIP EXAMINATION. JOB NUMBER: [id number] [facility]
--- NOTE | 2017-01-29 09:47 | RADIOLOGY REPORT ---
EXAM: RIGHT SHOULDER, FOUR VIEWS HISTORY: FALL, RIGHT SHOULDER INJURY AND PAIN. TECHNIQUE: Four views of the right shoulder were obtained. Comparison: None. Encounter: Initial. FINDINGS: Osteopenia. Mild to moderate osteoarthritic change of the right acromioclavicular joint and right glenohumeral joint with joint space narrowing and osteophytes. No fracture. The upper right ribs and clavicle are intact. IMPRESSION: 1. NEGATIVE FOR ACUTE FRACTURE OF THE RIGHT SHOULDER. 2. MILD TO MODERATE OSTEOARTHRITIC CHANGE OF THE RIGHT ACROMIOCLAVICULAR JOINT AND GLENOHUMERAL JOINT. JOB NUMBER: [id number] [facility]TDD
== END 2017-01-27 23:41 | disposition home or self-care (01) ==
LOC: ER 21:26
DX: S40.011A Contusion of right shoulder, initial encounter (principal); S70.11XA Contusion of right thigh, initial encounter; S09.90XA Unspecified injury of head, initial encounter; S19.9XXA Unspecified injury of neck, initial encounter; S79.911A Unspecified injury of right hip, initial encounter; M25.572 Pain in left ankle and joints of left foot; Z86.718 Personal history of other venous thrombosis and embolism; Z79.01 Long term (current) use of anticoagulants; Z87.891 Personal history of nicotine dependence; W18.09XA Striking against other object with subsequent fall, initial encounter; Y92.129 Unspecified place in nursing home as the place of occurrence of the external cause
CPT/HCPCS: 70450; 72125; 80053; 85025; 85610; 99284

== ENCOUNTER 2017-10-19 08:31 | Emergency (ER) | payer MEDICARE ==
--- NOTE | 2017-10-19 08:43 | Emergency Department Record ---
History of Present Illness - General Stated Complaint: DIZZY Time Seen by Provider: 10/19/17 08:35 Source: Patient, Family Mode of Arrival: Wheelchair Limitations: Other (Dementia) - History of Present Illness Initial Comments: 81 yo male presents with dizziness this morning. He has a history of dementia and he is a limited historian. He reports he has had vertigo in the past. His daughter also presents with the patient. She states he was given an Antivert by the staff at [facility] where resides. The dizziness did not improve. He has associated nausea as well. No headache, falls, changes in speech. His PCP is Dr Perry. The onset time is unknown due to the patient dementia. The patient is on Coumadin for prior DVT and PE. He does have a Left Hand filter. The daughter got a call at 8am but she does not know the onset time of the symptoms. The daughter last spoke with him 2 nights ago. No double vision. No weakness of the arms or legs. No speech changes per the daughter. MD Complaint: Dizziness Timing: Unsure (Last known at baseline is 8pm yesterday) Description: Difficulty walking, "Room spinning" Severity: Severe Improves With: Nothing Worsens With: Movement, Position Associated Symptoms: Other (nausea) - [place] Coma Scale Eye Response: (4) Open spontaneously Motor Response: (6) Obeys commands Verbal Response: (5) Oriented (To name, place and daughter - this is his baseline) [place] Total: 15 - Symptoms of Stroke Symptoms of stroke: Dizziness - Related Data Previous Rx's Medication Instructions Recorded Hydrocodone/Acetaminophen [[place] 0.5 tab PO Q6H PRN #10 tab 10/28/16 5mg/325mg] Meclizine HCl [Antivert] 25 mg PO Q8H #20 tablet 10/19/17 Ondansetron [Zofran Odt] 4 mg PO Q8H #15 tab.rapdis 10/19/17 Allergies Allergy/AdvReac Type Severity Reaction Status Date / Time Penicillins Allergy HIVES Verified 10/19/17 08:38 Review of Systems ROS unobtainable: Other (dementia) Past Medical History - SOCIAL HISTORY Smoking Status: Former smoker - RESPIRATORY Hx Respiratory Disorders: Yes Hx Pulmonary Embolism: Yes - CARDIOVASCULAR Hx Cardio Disorders: Yes Hx Deep Vein Thrombosis: Yes - NEURO Hx Neuro Disorders: Yes Hx TIA: Yes - GI Hx GI Disorders: Yes Hx Reflux: Yes - Hx Genitourinary Disorders: No - ENDOCRINE Hx Endocrine Disorders: No - MUSCULOSKELETAL Hx Musculoskeletal Disorders: No - PSYCH Hx Psych Problems: No - HEMATOLOGY/ONCOLOGY Hx Hematology/Oncology Disorders: No Physical Exam - General General Appearance: Alert, Cooperative, No acute distress Limitations: Other (poor memory due to dementia) - Head Head exam: Atraumatic, Normocephalic, Normal inspection - Eye Eye exam: Normal appearance, PERRL. negative: Conjunctival injection, Scleral icterus - ENT ENT exam: Normal exam Ear exam: Normal external inspection Nasal Exam: Normal inspection Mouth exam: Normal external inspection Teeth exam: Normal inspection Throat exam: Normal inspection - Neck Neck exam: Normal inspection, Full ROM. negative: Tenderness - Respiratory Respiratory exam: Normal lung sounds bilaterally. negative: Respiratory distress - Cardiovascular Cardiovascular Exam: Regular rate, Normal rhythm, Normal heart sounds. negative : Tachycardia Peripheral Pulses: 2+: Radial (R), Radial (L) - GI/Abdominal GI/Abdominal exam: Soft. negative: Tenderness - Rectal Rectal exam: Deferred - exam: Deferred - Extremities Extremities exam: Normal inspection, Full ROM, Normal capillary refill. negative: Pedal edema, Tenderness - Back Back exam: Reports: Normal inspection, Full ROM. Denies: CVA tenderness (R), CVA tenderness (L), Rash noted, Tenderness - Neurological Neurological exam: Abnormal gait (unable to stand on his own, unstable on his feet with transfer due to dizziness), Alert, CN II-XII intact, Oriented X3 (At his baseline). negative: Altered, Motor sensory deficit, Normal gait - Psychiatric Psychiatric exam: negative: Agitated, Anxious - Skin Skin exam: Dry, Intact, Normal color, Warm Stroke Assessment - NIH Stroke Scale 1a. Level of Consciousness: (0) Alert 1b. LOC Questions: (0) Answers Correctly 1c. LOC Commands: (0) Performs Tasks Correctly 2. Best Gaze: (0) Normal 3. Visual: (0) No Visual Loss 4. Facial Palsy: (0) Normal Symmetrical Movement 5a. Motor Arm Left: (0) No Drift 5b. Motor Arm Right: (0) No Drift 6a. Motor Leg Left: (0) No Drift 6b. Motor Leg Right: (0) No Drift 7. Limb Ataxia: (0) Absent 8. Sensory: (0) Normal 9. Best Language: (0) No Aphasia 10. Dysarthria: (0) Normal 11. Extinction/Inattention: (0) No Abnormality NIH [place] Scale Total: 0 Course - Reevaluation(s) Reevaluation #1: EKG 0842 NSR, rate 75 the intervals Qtc 467, axis L, ST no acute changes. 10/19/17 08:46 The daughter called [facility]. She was informed he awoke dizzy. He was last at his baseline at 8pm yesterday. 10/19/17 09:37 The INR is 1.9 The CBC was reviewed. No acute changes The CMP was reviewed. No acute changes The troponin is normal at 0.01 10/19/17 10:00 The HCT scan was reviewed and was read as no acute process or changes. 10/19/17 10:03 The patient is doing much better. The dizziness is nearly gone. He now sits up , stood to urinate. Well controlled. The daughter prefers he go back to his familiar environment at [facility]. He is stable for return. No signs of weakness, stroke, or other acute medical process at this time. 10/19/17 10:13 Medical Decision Making - Lab Data Result diagrams: 10/19/17 08:40 10/19/17 08:40 Disposition Disposition: Discharge Clinical Impression: Dizziness, Vertigo Disposition: Home, Self-Care Condition: (2) Stable Instructions: Dizziness (ED) Additional Instructions: 1. Bed rest the next 24 hours 2. No walking the next 48 hours without assistance 3. The Zofran may be taken every 8 hours for nausea if needed 4. The Antivert should be given every 8 hours for the next 24 hours then as needed for dizziness Prescriptions: Meclizine HCl [Antivert] 25 mg PO Q8H #20 tablet Ondansetron [Zofran Odt] 4 mg PO Q8H #15 tab.rapdis Forms: Patient Portal Access Time of Disposition: 09:38 Quality - Quality Measures Quality Measures: N/A - Blood Pressure Screening Does Patient Have Any of the Following: Active Dx of HTN Blood Pressure Classification: Pre-Hypertensive BP Reading Systolic Measurement: 147 Diastolic Measurement: 89 Screening for High Blood Pressure: Patient Exclusion, Hx of HTN [G9744]
[2017-10-19] MEDS ORDERED: ONDANSETRON HCL IV 4 MG/2 ML VIAL IVP ONE (08:47)
[2017-10-19 08:50] LABS: BASO % 0.3 % (0-6); EOS % 1.5 % (0-6); GRAN % 79.2 % (47-80); HEMATOCRIT 42.5 % (42.0-52.0); HEMOGLOBIN 13.2 gm/dl (14.0-18.0); LYMPH % 11.8 % (16-45); MEAN CELL VOLUME 94.7 fl (81-97); MEAN CORPUSCULAR HGB CONC 31.1 g/dl (32-36); MEAN PLATELET VOLUME 9.8 fl (7.4-10.4); MONO % 7.2 % (0-9); PLATELET COUNT 290 K/uL (130-400); RED BLOOD COUNT 4.49 M/uL (4.40-5.70); RED CELL DISTRIBUTION WIDTH 15.3 % (11.5-14.5); WHITE BLOOD COUNT W/O DIFF 11.1 K/uL (4.2-12.2)
[2017-10-19 08:54] LABS: MEAN CORPUSCULAR HEMOGLOBIN 29.3 pg (27-33)
[2017-10-19 09:01] LABS: INR 1.9; PARTIAL THROMBOPLASTIN TIME 36.2 SECONDS (24.5-39.1); PROTHROMBIN TIME (PATIENT) 20.8 SECONDS (9.5-12.1)
[2017-10-19 09:02] LABS: BLOOD UREA NITROGEN 25 mg/dL (8-23)
[2017-10-19 09:03] LABS: CREATININE 0.9 mg/dL (0.7-1.2); EST GLOMERULAR FILTRATION RATE > 60 mL/min; TOTAL PROTEIN 7.5 g/dL (6.6-8.7)
[2017-10-19 09:05] LABS: GLUCOSE,RANDOM 124 mg/dL (74-109)
[2017-10-19 09:08] LABS: ALB/GLOB RATIO 1.1 (1.1-1.8); ALBUMIN 3.9 g/dL (4.0-5.0); ALKALINE PHOSPHATASE 101 U/L (40-129); ALT/SGPT 14 U/L (<41); AST/SGOT 21 U/L (10.0-50.0)
== END 2017-10-19 10:21 | disposition home or self-care (01) ==
LOC: ER 08:31
DX: R42 Dizziness and giddiness (principal); R11.0 Nausea; R26.2 Difficulty in walking, not elsewhere classified; I10 Essential (primary) hypertension; F03.90 Unspecified dementia, unspecified severity, without behavioral disturbance, psychotic disturbance, mood disturbance, and anxiety; Z87.891 Personal history of nicotine dependence; Z79.01 Long term (current) use of anticoagulants; Z86.73 Personal history of transient ischemic attack (TIA), and cerebral infarction without residual deficits
CPT/HCPCS: 99284 ×2; 96374; 83735; 85025; 85730; 85610; 80053; 84484; 70450; 93005; 93010; J2405

== ENCOUNTER 2018-09-11 08:42 | Emergency (ER) | payer MEDICARE ==
[2018-09-11] MEDS ORDERED: MORPHINE SULFATE 10 MG/ML VIAL IVP ONE (08:45)
[2018-09-11] MEDS ORDERED: 0.9 % SODIUM CHLORIDE 1000ML 1,000 ML IV ONE ×2 (08:45→12:05)
[2018-09-11] MEDS ORDERED: ACETAMINOPHEN 1,000 MG/100 ML BTL IVPB ONE (08:47)
--- NOTE | 2018-09-11 08:51 | Emergency Department Record ---
History of Present Illness - General Stated Complaint: RUQ ABD PAIN Time Seen by Provider: 09/11/18 08:44 Source: Patient, Family Mode of Arrival: Ambulatory Limitations: No limitations - History of Present Illness Initial Comments: 82 yo male presents with abdominal pain. The onset was about one hour ago. The patient was awoken by the [facility] staff and the pain began. The pain is located in the RUQ and right side of the abdomen. The pain is sharp and constant. He has a history appendectomy in the past. No chest pain. No cough. No rash. No known trauma. No prior history of similar complaints of pain per the patient or daughter. 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 MD Complaint: Abdominal pain -: Hour(s) (1) Location: RUQ Radiation: RUQ Migration to: RUQ Severity: Severe Quality: Aching, Sharp Consistency: Constant Improves With: Nothing Worsens With: Movement Associated Symptoms: Denies other symptoms - Related Data Previous Rx's Medication Instructions Recorded Meclizine HCl [Antivert] 25 mg PO Q8H #20 tablet 10/19/17 Allergies Allergy/AdvReac Type Severity Reaction Status Date / Time Penicillins Allergy HIVES Verified 10/19/17 08:38 Review of Systems Constitutional: Denies: Chills, Fever, Malaise, Weakness Eyes: Denies: Eye discharge, Eye pain, Photophobia, Vision change ENT: Denies: Congestion, Throat pain Respiratory: Denies: Cough, Dyspnea Cardiovascular: Denies: Chest pain, Palpitations, Syncope Endocrine: Denies: Fatigue Gastrointestinal: Reports: Abdominal pain. Denies: Diarrhea, Nausea, Vomiting Genitourinary: Denies: Dysuria, Frequency, Hematuria Musculoskeletal: Denies: Arthralgia, Back pain, Joint swelling, Myalgia Skin: Denies: Bruising, Change in color, Rash Neurological: Denies: Headache, Weakness Psychiatric: Denies: Anxiety Hematological/Lymphatic: Denies: Blood Clots, Easy bleeding, Easy bruising, Swollen glands Past Medical History - SOCIAL HISTORY Smoking Status: Former smoker - RESPIRATORY Hx Respiratory Disorders: Yes Hx Pulmonary Embolism: Yes - CARDIOVASCULAR Hx Cardio Disorders: Yes Hx Deep Vein Thrombosis: Yes - NEURO Hx Neuro Disorders: Yes Hx TIA: Yes - GI Hx GI Disorders: Yes Hx Reflux: Yes - Hx Genitourinary Disorders: No - ENDOCRINE Hx Endocrine Disorders: No - MUSCULOSKELETAL Hx Musculoskeletal Disorders: No - PSYCH Hx Psych Problems: No - HEMATOLOGY/ONCOLOGY Hx Hematology/Oncology Disorders: No Physical Exam - General General Appearance: Alert, Oriented x3, Cooperative, No acute distress Limitations: No limitations - Head Head exam: Atraumatic, Normal inspection - Eye Eye exam: Normal appearance, PERRL. negative: Conjunctival injection, Scleral icterus - ENT ENT exam: Normal exam Ear exam: Normal external inspection Nasal Exam: Normal inspection Mouth exam: Normal external inspection - Neck Neck exam: Normal inspection - Respiratory Respiratory exam: Normal lung sounds bilaterally. negative: Accessory muscle use, Chest wall tenderness, Decreased breath sounds, Prolonged expiratory, Respiratory distress, Rhonchi, Stridor, Wheezes - Cardiovascular Cardiovascular Exam: Regular rate, Normal rhythm, Normal heart sounds - GI/Abdominal GI/Abdominal exam: Soft, Normal bowel sounds, Tenderness (Tender RUQ and right mid lateral otherwise the abdomen is soft and non tender). negative: Distended , Guarding, Rebound - Rectal Rectal exam: Deferred - exam: Deferred - Extremities Extremities exam: Normal inspection. negative: Pedal edema - Back Back exam: Denies: CVA tenderness (R), CVA tenderness (L), Paraspinal tenderness , Rash noted, Tenderness, Vertebral tenderness - Neurological Neurological exam: Alert, Oriented X3 - Psychiatric Psychiatric exam: Normal affect, Normal mood. negative: Agitated, Anxious - Skin Skin exam: Dry, Intact, Normal color, Warm Course - Reevaluation(s) Reevaluation #1: EKG EKG #1: 08:49 Rate: 106 Rhythm: Sinus tachycardia [place]: L Intervals: RBBB QRS 131 ST segments: RBBB with ST depression V1-V3 Prior: 10/19/17 new changes. 09/11/18 09:03 Cardiology paged to discuss the new EKG changes. 09/11/18 09:08 The CBC was reviewed. WBC is 18 09/11/18 09:15 The EKG was reviewed with Dr Quinonez. No STEMI. Will update as needed with work up results 09/11/18 09:44 Normal Troponin Normal CMP and Lipase The pain control is much improved at this time 09/11/18 10:28 The UA is negative 09/11/18 11:35 Waiting for the US report On examination the right upper quadrant is fish bin tender but he is tolerating the pain 09/11/18 12:02 The US is limited by bowel gas. The gall bladder does appear distended with sludge. 09/11/18 12:17 The case of discussed with Dr Barber of general surgery. He requests ED to ED transfer Dr Duron accepts the patient for transfer to [facility] [place] ED. Medical Decision Making - Lab Data Result diagrams: 09/11/18 08:45 09/11/18 08:45 Disposition Disposition: Transfer Clinical Impression: Right upper quadrant pain Disposition: Acute Care Hospital Transfer Transfer To: [facility] – [place] Reason For Transfer: RUQ pain, Accepting Physician: Domi Barber Time Discussed w/Accepting Physician: 12:20 Condition: (2) Stable Time of Disposition: 12:06 Quality - Quality Measures Quality Measures: N/A - Blood Pressure Screening Does Patient Have Any of the Following: Active Dx of HTN Blood Pressure Classification: Pre-Hypertensive BP Reading Systolic Measurement: 126 Diastolic Measurement: 71 Screening for High Blood Pressure: Patient Exclusion, Hx of HTN [G9744] Pre-Hypertensive Follow-up Interventions: Referral to alternative/primary care provider.
[2018-09-11 08:59] LABS: HEMATOCRIT 42.7 % (42.0-52.0); HEMOGLOBIN 13.6 gm/dl (14.0-18.0); MEAN CORPUSCULAR HEMOGLOBIN 29.6 pg (27-33); MEAN CORPUSCULAR HGB CONC 31.9 g/dl (32-36); PLATELET COUNT 328 K/uL (130-400); RED BLOOD COUNT 4.59 M/uL (4.40-5.70); RED CELL DISTRIBUTION WIDTH 15.2 % (11.5-14.5)
[2018-09-11 09:11] LABS: BLOOD UREA NITROGEN 25 mg/dL (8-23); CREATININE 0.9 mg/dL (0.7-1.2); EST GLOMERULAR FILTRATION RATE > 60 mL/min; LIPASE 13 U/L (13-60); TOTAL PROTEIN 7.6 g/dL (6.6-8.7)
[2018-09-11 09:13] LABS: GLUCOSE,RANDOM 162 mg/dL (74-109); INR 1.8; PARTIAL THROMBOPLASTIN TIME 38.7 SECONDS (24.5-39.1); PROTHROMBIN TIME (PATIENT) 17.7 SECONDS (9.5-12.1)
[2018-09-11 09:16] LABS: ALB/GLOB RATIO 1.1 (1.1-1.8); ALBUMIN 3.9 g/dL (4.0-5.0); ALKALINE PHOSPHATASE 107 U/L (40-129); ALT/SGPT 26 U/L (<41); AST/SGOT 31 U/L (10.0-50.0)
[2018-09-11 10:24] LABS: URINE APPEARANCE CLEAR; URINE BILIRUBIN NEGATIVE (NEGATIVE); URINE BLOOD NEGATIVE (NEGATIVE); URINE COLOR YELLOW; URINE GLUCOSE (UA) NEGATIVE (NEGATIVE); URINE KETONE NEGATIVE (NEGATIVE); URINE LEUKOCYTE ESTERASE NEGATIVE (NEGATIVE); URINE NITRITE NEGATIVE (NEGATIVE); URINE PROTEIN TRACE (NEGATIVE); URINE UROBILINOGEN 0.2 E.U./dL (0.20 - 1.00)
[2018-09-11] MEDS ORDERED: SODIUM CHLORIDE 0.9% IVPB ONE (12:33)
[2018-09-11] MEDS ORDERED: CEFTAZIDIME PENTAHYDRATE IVPB ONE (12:33)
--- NOTE | 2018-09-15 10:39 | ULTRASOUND REPORT ---
EXAM: ULTRASOUND OF THE ABDOMEN COMPLETE HISTORY: RIGHT UPPER QUADRANT ABDOMINAL PAIN. TECHNIQUE: Routine ultrasound examination of the abdomen was obtained. Comparison: None. FINDINGS: The examination is significantly limited by bowel gas. The pancreas is not diagnostically visualized. The mid and distal portions of the abdominal aorta are mildly atherosclerotic without aneurysmal dilatation. The proximal abdominal aorta is obscured by overlying bowel gas as is the aortic bifurcation. The liver is not optimally visualized. The parenchyma visualized appears mildly coarsened. This is most commonly seen with steatosis, but can also be seen with hepatitis and cirrhosis. No hepatic mass. No intra nor extrahepatic biliary ductal dilatation with the common hepatic duct measuring 2 mm. There is moderate distention of the gallbladder. No shadowing gallstone is seen though there is gallbladder sludge. No gross gallbladder wall thickening or pericholecystic fluid. There is a positive sonographic Granados's sign. The spleen is not enlarged and is homogeneous in echotexture. Screening evaluation of the kidneys does not demonstrate hydronephrosis with each kidney measuring 10 cm. There is a round echogenic area within the medial mid right kidney measuring 12 x 10 x 13 mm. This cannot be further characterized. Further evaluation with pre and post contrast administration CT or MRI examination would be of benefit. No other renal mass. IMPRESSION: 1. LIMITED EXAMINATION WITH THE PANCREAS, PROXIMAL ABDOMINAL AORTA, AND MUCH OF THE LIVER NOT DIAGNOSTICALLY VISUALIZED. 2. THE VISUALIZED LIVER APPEARS MILDLY COARSENED IN ECHOTEXTURE. DIAGNOSTIC CONSIDERATIONS INCLUDE; STEATOSIS, HEPATITIS, AND CIRRHOSIS. 3. MODERATE DISTENTION OF THE GALLBLADDER WITH ASSOCIATED SLUDGE, BUT WITHOUT STONE NOR GROSS GALLBLADDER WALL THICKENING. THERE IS A POSITIVE SONOGRAPHIC GRANADOS'S SIGN. ACUTE CHOLECYSTITIS IS NOT EXCLUDED. 4. SMALL MASS LIKE ECHOGENIC AREA WITHIN THE MID RIGHT KIDNEY MEASURING 13 MM IN DIAMETER. THIS COULD REPRESENT AN ANGIOMYOLIPOMA THOUGH OTHER ETIOLOGIES ARE NOT EXCLUDED AND IF CLINICALLY WARRANTED THIS COULD BE FURTHER EVALUATED WITH PRE AND POST CONTRAST ADMINISTRATION CT OR MRI EXAMINATION. JOB NUMBER: [id number] [facility]
== END 2018-09-11 13:04 | disposition short-term general hospital (02) ==
LOC: ER 08:42
DX: R10.11 Right upper quadrant pain (principal); K83.9 Disease of biliary tract, unspecified; I10 Essential (primary) hypertension; Z87.891 Personal history of nicotine dependence; Z79.01 Long term (current) use of anticoagulants; Z86.718 Personal history of other venous thrombosis and embolism
CPT/HCPCS: 99285 ×2; 96365; 96366; 96375; 83690; 85730; 85610; 80053; 81003; 84484; 85027; 76700; 93005; 93010; J2270; J0713; J7030

== ENCOUNTER 2019-01-14 09:31 | Inpatient (IN) | payer MEDICARE ==
[2019-01-14] MEDS ORDERED: 0.9 % SODIUM CHLORIDE 1000ML 1,000 ML IV PRN ×2 (09:41→13:40)
[2019-01-14] MEDS ORDERED: ONDANSETRON HCL IV 4 MG/2 ML VIAL IV ONE (09:41)
--- NOTE | 2019-01-14 09:41 | Emergency Department Record ---
History of Present Illness - General Chief Complaint: Abdominal Pain Stated Complaint: UPPER ABD PAIN Time Seen by Provider: 01/14/19 09:38 Source: Patient, RN notes reviewed Mode of Arrival: Wheelchair (with daughter) - History of Present Illness Initial Comments: 83 year old with right upper quad abd pain which started at 6 am today at [facility] and he was fine yesterday and eating OK and no vomiting and he has nausea and he is on the memory side of [facility]. No diarrhea and he had his GB taken out 08/2018 at [facility] with Dr Boston. His daughter is here with him today and they are not sure about his appendix and he has a sowmya filter placed more than 5 years ago. patient has also had hernia surgery. - Related Data Home Medications Medication Instructions Recorded Confirmed Last Taken Ascorbic Acid [Vitamin C] 500 mg PO DAILY 01/14/19 01/14/19 Unknown Donepezil HCl [Aricept] 5 mg PO DAILY 01/14/19 01/14/19 Unknown Ferrous Sulfate [Iron] 325 mg PO DAILY 01/14/19 01/14/19 Unknown Meclizine HCl [Antivert] 12.5 mg PO Q8H 01/14/19 01/14/19 Unknown Memantine HCl [Namenda] 10 mg PO DAILY 01/14/19 01/14/19 Unknown Allergies Allergy/AdvReac Type Severity Reaction Status Date / Time Penicillins Allergy HIVES Verified 10/19/17 08:38 Review of Systems Reviewed: No additional complaints except as noted below Constitutional: Reports: As per HPI. Denies: Chills, Fever, Malaise, Night sweats, Weakness, Weight change Eyes: Reports: As per HPI. Denies: Eye discharge, Eye pain, Photophobia, Vision change ENT: Reports: As per HPI. Denies: Congestion, Dental pain, Ear pain, Epistaxis, Hearing loss, Throat pain Respiratory: Reports: As per HPI. Denies: Cough, Dyspnea, Hemoptysis, Stridor, Wheezes Cardiovascular: Reports: As per HPI. Denies: Arrhythmia, Chest pain, Dyspnea on exertion, Edema, Murmurs, Orthopnea, Palpitations, Paroxysmal nocturnal dyspnea, Rheumatic Fever, Syncope Endocrine: Reports: As per HPI. Denies: Fatigue, Heat or cold intolerance, Polydipsia, Polyuria Gastrointestinal: Reports: As per HPI, Abdominal pain (right upper quad pain ), Nausea. Denies: Constipation, Diarrhea, Hematemesis, Hematochezia, Melena, Vomiting Genitourinary: Reports: As per HPI. Denies: Dysuria, Frequency, Hematuria, Incontinence, Retention, Testicular pain, Testicular mass, Urgency Musculoskeletal: Reports: As per HPI. Denies: Arthralgia, Back pain, Gout, Joint swelling, Myalgia, Neck pain Skin: Reports: As per HPI. Denies: Bruising, Change in color, Change in hair/nails, Lesions, Pruritus, Rash Neurological: Reports: As per HPI. Denies: Abnormal gait, Confusion, Headache, Numbness, Paresthesias, Seizure, Tingling, Tremors, Vertigo, Weakness Psychiatric: Reports: As per HPI. Denies: Anxiety, Auditory hallucinations, Depression, Homicidal thoughts, Suicidal thoughts, Visual hallucinations Hematological/Lymphatic: Reports: As per HPI. Denies: Anemia, Blood Clots, Easy bleeding, Easy bruising, Swollen glands Past Medical History - SOCIAL HISTORY Smoking Status: Former smoker - RESPIRATORY Hx Respiratory Disorders: Yes Hx Pulmonary Embolism: Yes - CARDIOVASCULAR Hx Cardio Disorders: Yes Hx Deep Vein Thrombosis: Yes - NEURO Hx Neuro Disorders: Yes Hx TIA: Yes - GI Hx GI Disorders: Yes Hx Reflux: Yes - Hx Genitourinary Disorders: No - ENDOCRINE Hx Endocrine Disorders: No - MUSCULOSKELETAL Hx Musculoskeletal Disorders: No - PSYCH Hx Psych Problems: No - HEMATOLOGY/ONCOLOGY Hx Hematology/Oncology Disorders: No Physical Exam - General General Appearance: Alert, Oriented x3, Cooperative, No acute distress - Head Head exam: Normal inspection - Eye Eye exam: Normal appearance, PERRL Pupils: Normal accommodation - ENT ENT exam: Normal exam, Mucous membranes moist, Normal external ear exam, Normal orophraynx, TM's normal bilaterally Ear exam: Normal external inspection. negative: External canal tenderness Nasal Exam: Normal inspection. negative: Discharge, Sinus tenderness Mouth exam: Normal external inspection, Tongue normal Teeth exam: Normal inspection. negative: Dental caries Throat exam: Normal inspection. negative: Tonsillar erythema, Tonsillar exudate - Neck Neck exam: Normal inspection, Full ROM. negative: Tenderness - Respiratory Respiratory exam: Normal lung sounds bilaterally. negative: Respiratory distress - Cardiovascular Cardiovascular Exam: Regular rate, Normal rhythm, Normal heart sounds - GI/Abdominal GI/Abdominal exam: Soft, Normal bowel sounds, Guarding (right upper quad), Tenderness (right upper quad pain) - Rectal Rectal exam: Heme (-) stool, Other (brown stool hemoccult negative) - exam: Deferred - Extremities Extremities exam: Normal inspection, Full ROM, Normal capillary refill. negative: Tenderness - Back Back exam: Reports: Normal inspection, Full ROM. Denies: Muscle spasm, Rash noted, Tenderness - Neurological Neurological exam: Alert, Normal gait, Oriented X3, Reflexes normal - Psychiatric Psychiatric exam: Normal affect, Normal mood - Skin Skin exam: Dry, Intact, Normal color, Warm Course - Reevaluation(s) Reevaluation #1: patient vomiting in radiology and he has less abdominal pain after vomiting. 01/14/19 11:04 Reevaluation #2: talked to family and they would like to try admission here first and will discuss case with surgery. Dr Barber called and paged. Dr. Boston carton stenciler 01/14/19 12:34 Medical Decision Making - Data Complexity MDM Data: Labs Ordered and/or Reviewed (WBC 17,500, hg 14.9), X-Ray Ordered and/or Reviewed (radiology report illeus and possible early SBO) - Lab Data Result diagrams: 01/14/19 10:02 01/14/19 10:02 Disposition Clinical Impression: Ileus Abdominal pain Qualifiers: Abdominal location: right upper quadrant Qualified Code(s): R10.11 - Right upper quadrant pain Vomiting Qualifiers: Vomiting type: unspecified Vomiting Intractability: non-intractable Nausea presence: with nausea Qualified Code(s): R11.2 - Nausea with vomiting, unspecified Dementia Qualifiers: Dementia type: Alzheimer's disease Alzheimer's disease onset: late-onset Dementia behavioral disturbance: without behavioral disturbance Qualified Code(s): G30.1 - Alzheimer's disease with late onset Decision to Admit: Admit from ER Condition: (2) Stable Forms: Patient Portal Access Time of Disposition: 12:35 Quality - Quality Measures Quality Measures: N/A - Blood Pressure Screening Does Patient Have Any of the Following: No Blood Pressure Classification: Pre-Hypertensive BP Reading Systolic Measurement: 128 Diastolic Measurement: 81 Screening for High Blood Pressure: < Pre-Hypertensive BP, F/U Documented > [G8950] Pre-Hypertensive Follow-up Interventions: Referral to alternative/primary care provider.
[2019-01-14] MEDS ORDERED: MORPHINE SULFATE 10MG/1ML **1ML VIAL IVP ONE (10:06)
[2019-01-14 10:08] LABS: ABSOLUTE NEUTROPHIL COUNT 15.09; HEMATOCRIT 46.8 % (42.0-52.0); HEMOGLOBIN 14.9 gm/dl (14.0-18.0); MEAN CELL VOLUME 93.4 fl (81-97); MEAN CORPUSCULAR HEMOGLOBIN 29.7 pg (27-33); MEAN CORPUSCULAR HGB CONC 31.8 g/dl (32-36); MEAN PLATELET VOLUME 9.9 fl (7.4-10.4); PLATELET COUNT 276 K/uL (130-400); RED BLOOD COUNT 5.01 M/uL (4.40-5.70); RED CELL DISTRIBUTION WIDTH 15.7 % (11.5-14.5); WHITE BLOOD COUNT W/O DIFF 17.5 K/uL (4.2-12.2)
[2019-01-14 10:18] LABS: INR 1.4; PROTHROMBIN TIME (PATIENT) 14.2 SECONDS (9.5-12.1)
[2019-01-14 10:20] LABS: PLATELET ESTIMATE NORMAL (NORMAL)
[2019-01-14 10:22] LABS: BLOOD UREA NITROGEN 28 mg/dL (8-23); CREATININE 1.1 mg/dL (0.7-1.2); EST GLOMERULAR FILTRATION RATE > 60 mL/min
[2019-01-14 10:30] LABS: GLUCOSE,RANDOM 167 mg/dL (74-109); TOTAL PROTEIN 8.1 g/dL (6.6-8.7)
[2019-01-14 10:31] LABS: ALBUMIN 4.6 g/dL (4.0-5.0); ALKALINE PHOSPHATASE 120 U/L (40-129); ALT/SGPT 11 U/L (<41); AST/SGOT 25 U/L (10.0-50.0); BILIRUBIN,DIRECT < 0.2 mg/dL (0-0.3); LIPASE 13 U/L (13-60)
[2019-01-14] MEDS ORDERED: KETOROLAC 30 MG/ML VIAL IVP ONE (11:27)
[2019-01-14] MEDS ORDERED: ONDANSETRON HCL IV 4 MG/2 ML VIAL IVP ONE (11:42)
[2019-01-14] MEDS ORDERED: MORPHINE SULFATE 10MG/1ML **1ML VIAL IVP PRN (13:40)
[2019-01-14] MEDS ORDERED: ONDANSETRON HCL IV 4 MG/2 ML VIAL IVP PRN (13:40)
[2019-01-14] MEDS ORDERED: PNEUM 13-VAL/PF 0.5 ML IM ONE (14:47)
[2019-01-14] MEDS: ENOXAPARIN 80 MG/0.8 ML SYR SQ SCH (15:48)
--- NOTE | 2019-01-14 17:11 | Medical Records Consult ---
DATE OF CONSULTATION: 01/14/2019 REASON FOR CONSULTATION: Ileus. HISTORY OF PRESENT ILLNESS: The patient is an 83-year-old male who developed some abdominal pain about 6 o'clock this morning. He stated he had some nausea without vomiting. However, per the nursing notes, he did have 2 bouts of emesis. He did have a laparoscopic cholecystectomy done about 3 months ago at [facility]. PAST MEDICAL HISTORY: Dementia, anemia. PAST SURGICAL HISTORY: Laparoscopic cholecystectomy, IVC filter, left inguinal hernia. CURRENT MEDICATIONS: 1. Ascorbic acid. 2. Aricept. 3. Iron. 4. Antivert. ALLERGIES: PENICILLIN. SOCIAL HISTORY: Denies any tobacco or alcohol usage. PHYSICAL EXAMINATION: VITAL SIGNS: Stable. He is afebrile. HEART: Regular rate and rhythm. LUNGS: Decreased. ABDOMEN: Soft. Minimal tenderness. EXTREMITIES: No trace of edema. LABORATORY DATA: I did review his laboratory values. He did have an elevated white blood cell count of 17.5 with a creatinine of 1.1. CT scan and x-rays were done which did show an ileus-type pattern. IMPRESSION AND PLAN: Abdominal pain secondary to ileus. We recommend keeping him n.p.o., IV hydration, and serial exams. Repeat x-ray in the morning and will follow him clinically. At this point, there do not appear to be any signs of obvious obstruction although we will follow him. Thank you for this referral. ARTIS
[2019-01-14 18:36] LABS: URINE APPEARANCE CLEAR; URINE BILIRUBIN NEGATIVE (NEGATIVE); URINE BLOOD NEGATIVE (NEGATIVE); URINE COLOR YELLOW; URINE GLUCOSE (UA) NEGATIVE (NEGATIVE); URINE KETONE TRACE (NEGATIVE); URINE LEUKOCYTE ESTERASE NEGATIVE (NEGATIVE); URINE NITRITE NEGATIVE (NEGATIVE); URINE PROTEIN NEGATIVE (NEGATIVE); URINE UROBILINOGEN 0.2 E.U./dL (0.20 - 1.00)
[2019-01-14] MEDS ORDERED: QUETIAPINE FUMARATE 25 MG TABLET PO SCH (22:00)
[2019-01-15] MEDS: ENOXAPARIN 80 MG/0.8 ML SYR SQ SCH ×3 (00:46→22:32)
[2019-01-15] MEDS ORDERED: 0.9 % SODIUM CHLORIDE 1000ML 1,000 ML IV PRN ×2 (01:03→17:06)
[2019-01-15] MEDS: 0.9 % SODIUM CHLORIDE 1000ML 1,000 ML IV PRN ×2 (06:35→12:02)
--- NOTE | 2019-01-15 07:34 | CT SCAN REPORT ---
EXAM: CT OF THE ABDOMEN AND PELVIS WITHOUT CONTRAST HISTORY: NAUSEA AND VOMITING. RIGHT UPPER QUADRANT PAIN. TECHNIQUE: Routine CT images of the abdomen and pelvis were obtained without contrast. Comparison: None. FINDINGS: The visualized lung parenchyma demonstrates granulomatous calcifications and interstitial thickening. There is trace perihepatic ascites. The gallbladder is surgically absent. The liver, biliary tree, pancreas, spleen, and adrenals have a normal noncontrast appearance. No renal or ureteral calculi or hydronephrosis. There is colonic diverticulosis without CT evidence for diverticulitis. There are dilated small bowel loops proximally measuring greater than 3 cm in caliber with evidence for decompressed distal loops which could relate to ileus or developing small bowel obstruction. There is gastric distention. The prostate is enlarged measuring 6 x 5.3 cm. The bladder is unremarkable. There is moderate atherosclerotic calcification. Mild aortic ectasia without aneurysmal dilation. There is an infrarenal IVC filter in place. No abdominal or pelvic lymphadenopathy. No free air. The abdominal wall soft tissues demonstrate an intramuscular lipoma within the right external oblique musculature measuring approximately 4-5 cm size range. No acute osseous abnormality. Moderate thoracic and lumbar spondylosis. IMPRESSION: 1. DILATED PROXIMAL SMALL BOWEL LOOPS WITH RELATIVE DECOMPRESSION DISTALLY. FINDINGS COULD RELATE TO ILEUS OR DEVELOPING SMALL BOWEL OBSTRUCTION. 2. THERE IS PROMINENT GASTRIC DISTENTION. 3. COLONIC DIVERTICULOSIS WITHOUT CT EVIDENCE FOR DIVERTICULITIS. 4. MILD ASCITES. 5. OTHER CHRONIC FINDINGS ABOVE. JOB NUMBER: [id number] [facility]
[2019-01-15] MEDS ORDERED: ACETAMINOPHEN 325 MG TAB PO PRN (08:02)
[2019-01-15 08:29] LABS: ABSOLUTE NEUTROPHIL COUNT 5.94; BASO % 0.2 % (0-6); EOS % 1.2 % (0-6); GRAN % 71.9 % (47-80); HEMATOCRIT 37.9 % (42.0-52.0); HEMOGLOBIN 11.6 gm/dl (14.0-18.0); LYMPH % 17.8 % (16-45); MEAN CELL VOLUME 96.9 fl (81-97); MEAN CORPUSCULAR HGB CONC 30.6 g/dl (32-36); MEAN PLATELET VOLUME 10.1 fl (7.4-10.4); MONO % 8.9 % (0-9); PLATELET COUNT 214 K/uL (130-400); RED BLOOD COUNT 3.91 M/uL (4.40-5.70); RED CELL DISTRIBUTION WIDTH 15.7 % (11.5-14.5); WHITE BLOOD COUNT W/O DIFF 8.3 K/uL (4.2-12.2)
[2019-01-15 08:32] LABS: MEAN CORPUSCULAR HEMOGLOBIN 29.6 pg (27-33)
[2019-01-15 08:39] LABS: BLOOD UREA NITROGEN 28 mg/dL (8-23); EST GLOMERULAR FILTRATION RATE > 60 mL/min; INR 1.6; PROTHROMBIN TIME (PATIENT) 16.1 SECONDS (9.5-12.1)
[2019-01-15 08:42] LABS: GLUCOSE,RANDOM 99 mg/dL (74-109)
[2019-01-15] MEDS: PANTOPRAZOLE SODIUM IV 40 MG VIAL IVP SCH ×2 (10:04→21:04)
[2019-01-15] MEDS ORDERED: SODIUM CHLORIDE IV SCH (19:30)
[2019-01-15] MEDS: 0.45% SODIUM CHLORIDE 1,000 ML IV SCH (20:15)
--- NOTE | 2019-01-15 20:17 | Rehab Evaluation ---
Patient Information - Patient Information Diagnosis: Abdominal pain, ileus Ordered Treatment: PT Evaluate and Treat Status: Initial Evaluation Surgery: No History: Detail (Pt is a resident of [facility]. He presented to ED 01/14/19 with complaints of abdominal pain and had been experiencing nausea/vomiting. He was admitted to Med Surg for medical management.) Past Medical/Surgical Hx: PAST MEDICAL/SURGICAL HISTORY Past Surgical History appendix ??? filter placed left knee gallbladder PMH - Respiratory Hx Respiratory Disorders Yes Hx Pulmonary Embolism Yes Hx Sleep Apnea Yes PMH - Cardiovascular Hx Cardiovascular Disorders Yes Hx Deep Vein Thrombosis Yes Hx Transient Ischemic Attacks Yes (TIA) PMH - Neuro Hx Neurological Disorders Yes Hx Transient Ischemic Attacks Yes (TIA) PMH - GI Hx Gastrointestinal Disorders Yes Hx Abdominal Pain Yes Hx Gastroesophageal Reflux Yes PMH - Hx Genitourinary Disorders No PMH - Endocrine Hx Endocrine Disorders No Hx Diabetes No Hx Thyroid Disease No PMH - Musculoskeletal Hx Musculoskeletal Disorders No PMH - Psych Hx Psychiatric Problems No PMH - Hematology/Oncology Hx Hematology/Oncology No Disorders Hx Clotting Problems Yes Premorbid Status: Detail (Unable to determine from notes and pt is unreliable historian.) Social History: Detail (Lives at [facility]; pt states he has a daughter Hardeep and a son ManojJr.) Precautions: [place], Fall - Time With Patient Total Time Spent With Patient (Min): 35 Treatment Procedures: Detail (PT Evaluation) Subjective Information - Subjective Information Per Patient (Pt lying awake in bed, cooperative for therapy evaluation.) Objective Data - Pain Pain Present: No (Pt denies abdominal pain at this time, or any other pain.) - Mental Status Patient Orientation: Person (Able to identify himself and give correct birthdate. He thinks he's in [place]; he seems surprised to learn that he is 83 years old. He is unable to tell me date.) - Visual Perception Appears within normal limits for therapeutic activities - ROM Within normal limits (Within normal limits at hips, knees, and ankles.) - Strength/Tone Not within normal limits (Good strength (4/5) in major muscle groups of B hips and knees. He has 0/5 strength in ankle dorsiflexion and plantarflexion.) - Coordination Appears within normal limits for therapeutic activities (Limited by cognitive status.) - Bed Mobility Independent (Assumed sitting at side of bed from supine w/o assist.) - Transfers Independent (Sit/stand from bedside to front wheeled walker w/SBA, and sit/stand transition at toilet w/VCs.), Needs Assist - Balance Balance Sitting: Good Balance Standing: Good, Fair (Was able to stand to lower and pull up underwear at toilet.) - Gait Detail (Pt ambulated from bedside to bathroom w/front wheeled walker w/CGA, with dropfoot evident bilaterally, and somewhat of a steppage gait.) Therapy Assessment - Therapy Assessment Detail (Patient's mobility does not appear limited by his medical condition at this time, but safety/judgment may be affected by cognitive status. He may benefit from further therapy while hospitalized to facilitate safety with ambulation.) Problem List - Problem List Physical Therapy Problem List: Detail (1. VCs and CGA for toilet transfers. 2. Impaired judgment possibly affecting mobility/gait.) Goals - Goals Physical Therapy Goals: 1. Pt will safely perform transfers and ambulation with front wheeled walker with supervision. Prognosis - Prognosis Good Plan - Plan Physical Therapy Plan: Patient will be seen 1-2x/daily M-F while hospitalized to facilitate safe mobility.
[2019-01-15] MEDS ORDERED: ZINC OXIDE 28.35 GM TUBE TOP ONE (20:49)
[2019-01-15] MEDS ORDERED: ZINC OXIDE 28.35 GM TUBE TOP PRN ×2 (21:10→21:28)
--- NOTE | 2019-01-16 07:38 | RADIOLOGY REPORT ---
EXAM: ABDOMEN, TWO VIEWS HISTORY: IMPROVING ABDOMINAL PAIN AND VOMITING. ILEUS. TECHNIQUE: AP supine and upright views of the abdomen are obtained. Comparison: CT of the abdomen and pelvis without contrast dated 01/14/19. FINDINGS: Gas and stool are noted throughout a nondilated colon to the level of the rectum. Multiple gas and fluid distended small bowel loops are noted within the central abdomen. These are nondilated to borderline dilated. The degree of distention has improved in the interval. No new mass, organomegaly, or suspicious calcification is seen. A round calcific density projects at the level of the right upper quadrant. This corresponds to benign calcification in the lateral right cardiophrenic region seen on prior day examination. No free intraperitoneal air. An IVC filter is in place. Mild bibasilar atelectasis is suspected. Mild degenerative changes are scattered throughout the visualized spine and hips. Mild levoconvex scoliosis of the lumbar spine redemonstrated. IMPRESSION: MULTIPLE GAS AND FLUID DISTENDED SMALL BOWEL LOOPS IN THE MID ABDOMEN WHICH ARE NONDILATED TO BORDERLINE DILATED. THESE HAVE MILDLY IMPROVED IN THE INTERVAL. NO FREE INTRAPERITONEAL AIR. JOB NUMBER: [id number] [facility]
--- NOTE | 2019-01-16 07:51 | Rehab Evaluation ---
Patient Information - Patient Information Diagnosis: Abdominal pain, ileus Ordered Treatment: OT Evaluate and Treat Status: Initial Evaluation Surgery: No History: Detail (Pt is a resident of [facility]. He presented to ED 01/14/19 with complaints of abdominal pain and had been experiencing nausea/vomiting. He was admitted to Med Surg for medical management.) Past Medical/Surgical Hx: PAST MEDICAL/SURGICAL HISTORY Past Surgical History appendix ??? filter placed left knee gallbladder PMH - Respiratory Hx Respiratory Disorders Yes Hx Pulmonary Embolism Yes Hx Sleep Apnea Yes PMH - Cardiovascular Hx Cardiovascular Disorders Yes Hx Deep Vein Thrombosis Yes Hx Transient Ischemic Attacks Yes (TIA) PMH - Neuro Hx Neurological Disorders Yes Hx Transient Ischemic Attacks Yes (TIA) PMH - GI Hx Gastrointestinal Disorders Yes Hx Abdominal Pain Yes Hx Gastroesophageal Reflux Yes PMH - Hx Genitourinary Disorders No PMH - Endocrine Hx Endocrine Disorders No Hx Diabetes No Hx Thyroid Disease No PMH - Musculoskeletal Hx Musculoskeletal Disorders No PMH - Psych Hx Psychiatric Problems No PMH - Hematology/Oncology Hx Hematology/Oncology No Disorders Hx Clotting Problems Yes Premorbid Status: Detail (Unable to determine from notes and pt is unreliable historian. Patient states that he did not receive help with drsg [employer].) Social History: Detail (Lives at [facility]; pt states he has a daughter Hardeep and a son Jr Manoj.) Precautions: [place], Fall - Time With Patient Total Time Spent With Patient (Min): 25 Treatment Procedures: Detail (Eval low OT) Objective Data - Pain Pain Present: No - Mental Status Patient Orientation: Person (Patient able to state full name and birthdate but surprised to hear he is 83 y.o. and unable to state date or name where he was located at the moment.) - Visual Perception Deficit (Patient wears glasses.) - ROM Not within normal limits (Patient WNL for RUE. For LUE patient showed shoulder flex to ~130 deg and shld abd to ~ 125 deg. All other shld, elbow ROM WNL for LUE.) - Strength/Tone Not within normal limits (RUE shows more weakness that LUE. RUE MMT is as follows: shld flex 3+/5, shld ext 4+/5,, shld abd 3+/5, elbow flex and ext 4+/5; LUE MMT is as follows: shld flex 4/5, shld ext 4+/5, shld abd 4/5, elbow flex/ext 4+/5. Mildly weakned gross grasp darius.) - Coordination Appears within normal limits for therapeutic activities - Bed Mobility Independent (supine< > short sit edge of bed) - Transfers Independent (with sit < > stand t/f) - Balance Balance Sitting: Good - Sensation Deficit (Patient states he feels some paresthesia in R hand specifically in R index finger and R middle finger with dulled sensation in these fingers.) - Gait Detail (Patient receiving IV medication and unable to ambulate with shortened line.) - ADL's/IADL's Detail (Patient completed LB drsg sitting at edge of bed. Difficulty with threading feet into pants until glasses were donned. Patient able to thread darius legs into pants independently. Independent seedling puller hips in standing without using walker for support.) Therapy Assessment - Therapy Assessment Detail (Patient presents with generalized weakness of bilateral upper extremities that would affect ease with self care tasks. There are some safety concerns due to cognitive reasons for drsg although patient shows independence with LB drsg. He has some paresthesia in right index finger and right middle finger that would affect fine motor coordination. Patient very cooperative during evaulation.) Problem List - Problem List Physical Therapy Problem List: Detail (1. VCs and CGA for toilet transfers. 2. Impaired judgment possibly affecting mobility/gait.) Occupational Therapy Problem List: Detail (1. Weakness bilateral upper extremities and gross grasp 2. Safety concerns with high level ADLs such as toileting 3. Decreased FMC) Goals - Goals Physical Therapy Goals: 1. Pt will safely perform transfers and ambulation with front wheeled walker with supervision. Occupational Therapy Goals: 1. Patient to be independent with toilet t/f. 2. Increased BUE strength and gross grasp Prognosis - Prognosis Good Plan - Plan Physical Therapy Plan: Patient will be seen 1-2x/daily M-F while hospitalized to facilitate safe mobility. Occupational Therapy Plan: Pt to be seen 2-4x a week M-F by OT for increased BUE strength and gross grasp strength as well as instruction for improved FMC.
[2019-01-16 07:59] LABS: BASO % 0.3 % (0-6); EOS % 1.6 % (0-6); HEMATOCRIT 35.6 % (42.0-52.0); HEMOGLOBIN 10.9 gm/dl (14.0-18.0); MEAN CELL VOLUME 97.3 fl (81-97); MEAN CORPUSCULAR HGB CONC 30.6 g/dl (32-36); MEAN PLATELET VOLUME 10.5 fl (7.4-10.4); MONO % 8.1 % (0-9); PLATELET COUNT 207 K/uL (130-400); RED BLOOD COUNT 3.66 M/uL (4.40-5.70); RED CELL DISTRIBUTION WIDTH 15.6 % (11.5-14.5); WHITE BLOOD COUNT W/O DIFF 11.2 K/uL (4.2-12.2)
[2019-01-16 08:00] LABS: MEAN CORPUSCULAR HEMOGLOBIN 29.7 pg (27-33)
[2019-01-16 08:09] LABS: INR 1.4; PROTHROMBIN TIME (PATIENT) 13.9 SECONDS (9.5-12.1)
[2019-01-16 08:11] LABS: BLOOD UREA NITROGEN 16 mg/dL (8-23); CREATININE 0.8 mg/dL (0.7-1.2); EST GLOMERULAR FILTRATION RATE > 60 mL/min
[2019-01-16 08:14] LABS: GLUCOSE,RANDOM 91 mg/dL (74-109)
[2019-01-16] MEDS: PANTOPRAZOLE SODIUM IV 40 MG VIAL IVP SCH (08:19)
[2019-01-16] MEDS: 0.45% SODIUM CHLORIDE 1,000 ML IV SCH (08:33)
--- NOTE | 2019-01-16 09:01 | History and Physical Report ---
CHIEF COMPLAINT: This 83-year-old male presented to the emergency department with right upper quadrant abdominal pain which started at 6 a.m. on 01/14/2019. He is a resident at [facility]. He was doing fine the day before eating without any problems. No vomiting, no nausea. He had vomiting when he was in the emergency department and in radiology department during my evaluation. He is on the memory side of [facility] with dementia. Family denies any diarrhea. He had his gallbladder removed August 2018 at [facility] by Dr. Boston. His daughter was in the room with him giving me the history. They are not sure if the appendix has been removed or not. I can review that on the CT scan. He had a [place] filter placed many years ago for multiple DVTs and pulmonary embolisms. He is on Coumadin therapy for that. He has a protein C deficient disease. He was diagnosed in the emergency department with ileus and possible small bowel obstruction. Discussed the case with Dr. Barber on the phone. He said he would see him and do a consultation on the floor. 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 He also has GERD, dementia which is severe, and history of multiple small TIAs. He has an aortic heart murmur with a moderate aortic stenosis diagnosed in October 2016. PAST SURGICAL HISTORY: He has had laparoscopic cholecystectomy in August 2018, he has had hernia repairs, he has also had an IVC filter placed. His hernia repair was in the left inguinal area. MEDICATIONS: 1. Ferrous sulfate 325 daily. 2. Aricept 5 mg daily. 3. Namenda 10 mg b.i.d. 4. Vitamin C 500 mg daily. 5. Coumadin 2.5 mg daily. 6. Seroquel 50 mg at h.s. 7. Potassium chloride 10 mEq daily. 8. MiraLax 19 g daily. 9. Omeprazole 20 mg daily. 10. Ativan 12.5 q.8 h. p.r.n. 11. Lasix 40 mg daily. 12. Tylenol 325 every 6 hours p.r.n. ALLERGIES: PENICILLIN. FAMILY/PSYCHOSOCIAL HISTORY: He lives at [facility] on the memory side of the unit. He is a former cigarette smoker. No alcohol or drug use. REVIEW OF SYSTEMS: HEENT: No upper respiratory infection symptoms, cough, cold, or congestion. Cardiovascular: No chest pain or palpitations. Respiratory: No respiratory problems. Gastrointestinal: See Chief Complaint. He has nausea, vomiting, abdominal pain in the right upper quadrant. Genitourinary: No dysuria, hematuria, frequency, or burning on urination. However, it is hard to get a history because of his dementia. He does not answer questions appropriately, so it is mostly by what the medical staff at [facility] and the daughter are telling me. Musculoskeletal: Moving all 4 extremities. Has arthritis. Neuropsych: He has Alzheimer disease severe. He has had previous TIAs in the past also. Endocrine: No diabetes or thyroid disease. Integument: No rash, ulcers, change in moles, or yellow skin. PHYSICAL EXAMINATION: VITALS: In the emergency department, temperature 98.9, pulse 87, blood pressure 128/81, respiratory rate 18, pulse ox 98% on room air, weight 155 pounds, height 5 feet 10 inches. HEENT: Pupils are equal, round, and reactive to light and accommodation. Extraocular muscles are intact. Throat is clear. Nose is clear. Tympanic membranes are larson. His mucous membranes are dry. NECK: Supple. No jugular venous distention. No hepatojugular reflux. No carotid bruits. Thyroid is smooth. CARDIOVASCULAR: Regular rate and rhythm without murmurs, clicks, rubs, or gallops. RESPIRATORY: Breath sounds equal bilaterally. ABDOMEN: Painful in the right upper quadrant. No rebound or rigidity. There is some guarding in the right upper quadrant. EXTREMITIES: No pitting edema. No cyanosis, no clubbing. Full range of motion. JOINTS: He does have arthritis in his joints. He is slow to move. Typical for his age. RECTAL: Exam done in the emergency department, Hemoccult-negative stools. GENITALIA: Normal male genitalia. NEUROLOGIC: Cranial nerves II-XII intact. No gross defects. Sensation normal, strength normal. Deep tendon reflexes equal bilaterally. He has mental status changes of he is alert but disoriented to time and place but not person. He has very bad short-term memory. SKIN: No abnormal skin abnormalities seen on examination. IMPRESSION: 1. Abdominal pain. 2. Right upper quadrant abdominal pain. 3. Ileus. 4. Possible impending small bowel obstruction. 5. Dementia, severe, Alzheimer's and vascular. 6. History of multiple deep venous thromboses and pulmonary emboli and on Coumadin therapy. 7. History of protein C deficiency. 8. Gastroesophageal reflux disease. 9. History of iron deficiency anemia. 10. 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 11. History of vertigo. PLAN: IV hydration. Pain control. Surgical consultation and further evaluation. MTDD
[2019-01-16] MEDS: ENOXAPARIN 80 MG/0.8 ML SYR SQ SCH (09:52)
--- NOTE | 2019-01-16 10:00 | Discharge Note ---
VTE H&P Assessment - Risk for VTE Risk for VTE: Yes Risk Level: Moderate Risk Assessment Date: 01/14/19 Risk Assessment Time: 14:00 VTE Orders Placed or Will Be Placed: Yes Discharge Medications - Discharge Medications Prescriptions: Quetiapine Fumarate [Seroquel] 25 mg PO QHS #30 tablet Home Medications: Ambulatory Orders Omeprazole 20 mg PO DAILY 06/28/16 [Last Taken 09/11/18] Warfarin Sodium [Coumadin] 2.5 mg PO DAILY 06/28/16 [Last Taken 09/11/18] Acetaminophen [Tylenol 325Mg] 325 mg PO Q6H PRN 10/05/16 [Last Taken 09/11/18] Polyethylene Glycol 3350 [Miralax] 119 gm PO DAILY 10/05/16 [Last Taken 09/11/18] Ascorbic Acid [Vitamin C] 500 mg PO DAILY 01/14/19 [Last Taken Unknown] Ferrous Sulfate [Iron] 325 mg PO DAILY 01/14/19 [Last Taken Unknown] Acetaminophen [Tylenol 325Mg] 325 mg PO Q6H PRN tablet 01/16/19 [Last Taken Unknown] Quetiapine Fumarate [Seroquel] 25 mg PO QHS #30 tablet 01/16/19 [Last Taken Unknown] Zinc Oxide [Desitin] 1 gm TOP BID PRN tube 01/16/19 [Last Taken Unknown] Discharge Note - Date Date of Discharge Note: 01/16/19 Disposition: [facility] Condition: (2) Stable Additional Instructions: follow up with dr Perry on Saturday at [facility] at 1 pm soft diet till saturday Prescriptions: Quetiapine Fumarate [Seroquel] 25 mg PO QHS #30 tablet Forms: Patient Portal Access
--- NOTE | 2019-01-19 11:30 | Discharge Summary ---
DATE OF ADMISSION: 01/14/2019 DATE OF DISCHARGE: 01/16/2019 DISCHARGE DIAGNOSES: 1. Ileus resolving. 2. Partial small bowel obstruction resolving. 3. Hypotension resolving. 4. Dehydration resolving. 5. Dementia. ATTENDING PHYSICIAN: eJred Perry D.O. HISTORY OF PRESENT ILLNESS: This 83-year-old male presented to the emergency department with right upper quadrant abdominal pain which started at 6 a.m. on 01/14/2019. He was a resident of [facility], he was doing fine the day before, eating without any problems, no vomiting, no nausea. He had vomiting when he was in the emergency department and radiology department during his ER evaluation. He is on the memory side of the [facility] with dementia. The family denies any diarrhea. He had his gallbladder removed 09/19/[address] [facility] by Dr. Boston. His daughter was in the room providing the history. They are not sure if his appendix had been removed or not. I will review that on the CT scan. He had a [place] filter placed many years ago for multiple DVTs and pulmonary embolism and on Coumadin therapy for that. He has a protein C deficiency. He was diagnosed in the emergency department with an ileus and possible small bowel obstruction. I discussed the case with Dr. Barber on the phone, he said he would see him in consultation on the floor. SIGNIFICANT FINDINGS: The CT of the abdomen revealed dilated proximal small bowel loops with relative decompression distally. The findings could relate to ileus or developing small bowel obstruction. There is a prominent gastric distention, colonic diverticulosis without CT evidence of diverticulitis, mild ascites. A repeat x-ray the next day showing improved gas pattern, multiple gas and fluid distended small bowel loops in the mid abdomen which are nondilated to borderline dilated. These have mildly improved in the interval. No free intraperitoneal air is seen. LABORATORY: Initially the white count was 17,500, dropped to 11,200 on the day of discharge. Hemoglobin was 14.9 on admission, 10.9 on discharge. Serum iron was low at 44, normal is 59 to 158. His PT was 1.4 initially in the emergency department and on discharge it was 1.4. We will restart his Coumadin now at this time and stop the Lovenox shots. His potassium on discharge was 3.7, sodium is 143, chloride is 109, BUN is 16, creatinine is 0.8. Magnesium was 1.9. Initially in the emergency department his BUN was 28 and creatinine was 1.1. His weight on discharge was 166 pounds. When he came into the hospital his weight was 158. Negative urine. No fevers throughout the hospitalization. He had a low grade 99.1 at one point. The patient was eating on discharge, a soft diet and tolerating it without abdominal pain. No vomiting. He has had 2 loose stools prior to discharge. CONDITION AT DISCHARGE: Much improved. DISCHARGE INSTRUCTIONS: Follow up with Dr. Perry at [facility] on Saturday at 1:00 p.m. We will drop his Seroquel down to 25 mg at bedtime, because that might be too strong for him in lowering his blood pressure, however his blood pressure did not respond much after 24 hours of stopping the Seroquel. We will just keep him off the Lasix and potassium pills at this point and follow that and decide if he needs that back on. His blood pressure on the morning of the discharge day was 107/50, but then prior to discharge he dropped down to 91/44. He was not symptomatic. He was walking around with his walker and feeling much better and looking much better. His discharge medications will be much reduced because of we do not want to have side effects from the medication lowering his blood pressure. At this point, he will have Seroquel 25 mg at bedtime, omeprazole 20 mg daily, Coumadin 2.5 mg daily. We will follow his prothrombin time weekly, Tylenol 325 q.6 hours p.r.n., MiraLax for constipation 19 grams daily as needed, vitamin C 500 mg daily, ferrous sulfate 325 daily, zinc oxide Desitin p.r.n. We are stopping his Aricept, Namenda, Lasix, Antivert. [facility]
== END 2019-01-16 10:30 | DRG 389 ==
LOC: ER 09:31 → MEDSURG 13:20
PROVIDERS: ADMIT Emergency Medicine; ATTEND Emergency Medicine
DX: K56.7 Ileus, unspecified (principal); I82.4Y3 Acute embolism and thrombosis of unspecified deep veins of proximal lower extremity, bilateral; G30.1 Alzheimer's disease with late onset; R11.10 Vomiting, unspecified; I95.9 Hypotension, unspecified; E86.0 Dehydration; K21.9 Gastro-esophageal reflux disease without esophagitis; Z90.49 Acquired absence of other specified parts of digestive tract; Z86.711 Personal history of pulmonary embolism; Z86.73 Personal history of transient ischemic attack (TIA), and cerebral infarction without residual deficits; Z86.718 Personal history of other venous thrombosis and embolism; Z51.81 Encounter for therapeutic drug level monitoring; Z79.01 Long term (current) use of anticoagulants
CPT/HCPCS: 83540; 83690; 85610 ×2; 80076; 80048; 84484; 85027; 74176; 93005; 93010; J1885; J2405 ×2; J2270; 74019; 81003; 83735; 84443; 85025; 90670; C9113